=== PATIENT | male | born 1935 | race Caucasian/White ===

== ENCOUNTER 2017-09-09 09:47 | Inpatient (IN) | payer MEDICARE, OTHER, SELFPAY ==
[2017-09-09] VITALS (15 sets, daily range): BP systolic 72–126; BP diastolic 26–67; PULSE 63–90; RESP 13–33; TEMP 36.4–36.5; O2SAT 92–100; BMI 26.0; BMI 25.7; BMI 26.1
--- NOTE | 2017-09-09 10:01 | EKG12_ITS ---
Test Reason : SYNCOPE Blood Pressure : / mmHG Vent. Rate : 087 BPM Atrial Rate : 087 BPM P-R Int : 178 ms QRS Dur : 090 ms QT Int : 404 ms P-R-T Axes : 078 -46 076 degrees QTc Int : 486 ms Sinus rhythm with occasional Premature ventricular complexes Low voltage QRS Left anterior fascicular block Prolonged QT Abnormal ECG Confirmed by POPPY FORDE, LAN ([id number]), legal editor MAXWELL MEDELLIN ([id number]) on 09/11/2017 2:10:31 PM Referred By: GARY Confirmed By:LAN MCWILLIAMS MD
--- NOTE | 2017-09-09 10:08 | ED.DCSUM_ITS ---
- ER Visit Summary Date of Service: 09/09/17 Chief Complaint: Weakness History of Present Illness: The patient is a 81 M brought in by EMS. Patient reports having poor appetite and p.o. intake over the past couple weeks due to a sour stomach. Patient states he has had nausea but no vomiting or diarrhea. He has not been willing to eat or drink. He was taking a shower this morning when he fell to the floor stating he was too weak. Family was unable to help him up. Patient denies that he passed out. EMS reports the patient was unresponsive on their arrival with agonal respirations. Patient is alert after getting IV fluid boluses. He remains hypotensive. He denies pain at this time. He denies vomiting or diarrhea. He has reported mild cough. Past history significant for hypertension. He has continued to take his blood pressure medications. Physical Examination: Blood pressure 72/40, temperature 97.6, heart rate 81, respiratory rate 33, pulse ox 98% on room air. The time of my examination his respiratory rate is 20. Patient is lying in bed in no acute distress. He is alert and talkative. Head neck examination is significant for dry mucous membranes. There is no external sign of trauma. Heart is regular rate and rhythm. Lung sounds are clear. Abdomen is soft and nontender to palpation. Hypoactive bowel sounds are noted throughout. Neuro exam reveals no focal deficits. Test Results: EKG is sinus [address] change. CBC was a white count of 20.4 with hemoglobin 11.4. Chemistry studies reveal bicarb of 17, BUN 69, creatinine 2.81. There are no prior lab studies available for comparison. LFTs are significant for an AST of 71. His lactic acid returned at 19.1. His calcium is elevated at 13.9. ABG was ordered but venous stick was obtained. PH is 7.22. Emergency Department Course and Treatment: Patient has been given a total of 4 L of IV fluid. Blood pressure is currently 126/65 with a heart rate of 70. On repeat examination patient states he does feel improved. He has no abdominal tenderness on exam. I spoke with Dr. Ricardo and the patient be admitted to PCU. Treatment Plan: [] Disposition: Admit Impression: 1. Renal failure 2. Hypotension, improved 3. Lactic acidosis This note was generated with [employer]ation software. It may contain incorrect words, spelling, and punctuation that were not noted in review of the chart prior to signing ED Disposition - Plan for ED Patient: Chief Complaint: Weakness Referrals: Jesus Alberto Kaur MD [Primary Care Provider] -
[2017-09-09 10:11] LABS: Bedside Glucose 119 mg/dL (70-110)
[2017-09-09 10:28] LABS: Hemoglobin 11.4 g/dl (13.0-16.5); Mean Corp Hgb Conc 33.5 g/gl (32-36); Mean Corpuscular Hgb 31.3 pg (27.0-32.0); Mean Corpuscular Volume 93.4 fL (80-94); Mean Platelet Vol. 10.3 fl (6.2-12.0); Platelet Count 183 K/mm3 (150-450); RBC Distribution Width CV 12.6 % (11.6-14.6); RBC Distribution Width SD 42.6 fl (35.1-43.9); Red Blood Count 3.64 M/mm3 (4.6-6.2); White Blood Count 20.4 K/mm3 (4.4-11.0)
[2017-09-09] MEDS: 0.9% Normal Saline 1,000 ML 1000 ML IV ×2 (10:30)
[2017-09-09] MEDS: Ondansetron 4 MG/2 ML Vial IV (10:30)
[2017-09-09 10:35] LABS: Differential Indicated MANUAL DIFF; POSITIVE COUNT YES; POSITIVE DIFFERENTIAL NO; POSITIVE MORPHOLOGY YES
--- NOTE | 2017-09-09 10:48 | ED.RN ---
lab resulted lactic 19.1, physician noted
[2017-09-09 10:49] LABS: Lactic Acid 19.1 mmol/L (0.4-2.0)
--- NOTE | 2017-09-09 10:54 | ED.RN ---
PER SAMMI WITH JESSICA HERNANDEZ; SOMEONE WILL CALL US BACK IN REGARDS TO PT TODAY IN THE MEAN TIME DO WHAT IS BEST FOR THE PT
--- NOTE | 2017-09-09 10:58 | ED.RN ---
2l normal saline given by ems prior to arrival. total fluid bolus to pt 4l.
[2017-09-09 11:13] LABS: Lymphocyte 19 % (19-41); Metamyelocyte 5 % (0-1); Monocyte 3 % (0-10); Myelocyte 3 (0-0); Neutrophil-Segmented 70 % (47-70); Total Cells Counted 100 (MANUAL DIFF)
[2017-09-09 11:14] LABS: Platelet Estimate ADEQUATE (ADEQ); Red Cell Morphology NORM C+C NORMAL (NORM C&C)
[2017-09-09 11:15] LABS: AST(SGOT) 71 U/L (15-37); Absolute Lymphocyte Count 3.88 X10^3/ul (0.83-4.51); Absolute Neutrophil Count 14.3 X10^3/uL (2.0-7.7); Alanine Aminotransfer ALT/SGPT 27 U/L (16-61); Alkaline Phosphatase 83 U/L (45-117); Anion Gap 32 (5-15); BUN 69 mg/dL (7-18); BUN/Creat Ratio 24.6 RATIO (10-20); Bilirubin, Direct 0.13 mg/dL (0.00-0.30); Calcium,Total 13.9 mg/dL (8.5-10.1); Chloride 88 mmol/L (98-107); Creatinine, Serum 2.81 mg/dL (0.70-1.30); EST Glomerular Filtration Rate 23 mL/min (>60); Est Glom Filt Rate - Afr Amer 28 mL/min (>60); Estimated Creatinine Clearance 18.61 ml/min; Globulin 3.1 g/dL (2.2-4.2); Glucose 142 mg/dL (74-106); Potassium 3.7 mmol/L (3.5-5.1); Protein, Total 6.1 g/dL (6.4-8.2); Sodium Level 137 mmol/L (136-145)
[2017-09-09 12:15] LABS: Mucous, Urine 0 SEEN /hpf (<or=2+); Red Blood Cells-Urine 0 SEEN /hpf (0-5); Squamous Epithelial Cells - UA 0 SEEN /hpf (0-5)
[2017-09-09 12:22] LABS: Color, Urine Yellow (Yellow); Glucose, Dipstick Normal (Normal); Ketone-Dipstick 50 mg/dl (Negative); Leukocyte Esterase-Dipstick Negative /ul (Negative); Nitrite-Dipstick Negative (Negative); Occult Blood-Urine 250 /ul (Negative); Protein-Dipstick 30 mg/dl (Negative); Urine Bilirubin Dipstick Negative (Negative); Urine Clarity Clear (Clear); Urine Urobilinogen Normal (Normal)
[2017-09-09 12:35] LABS: Bacteria 1+ /hpf (None Seen); White Blood Cells 0-5 SEEN /hpf (0-5)
[2017-09-09 12:36] LABS: Hyaline Cast 0-5 SEEN /lpf (0-5)
[2017-09-09 12:37] LABS: Fine Granular Cast- Urine 0-5 SEEN /lpf (0-5)
--- NOTE | 2017-09-09 13:11 | CM.ED ---
Social Work Note Into complete initial assessment as pt is to be admitted. Pt accompanied by his daughter, Jessica, and SW introduced self and role at [facility]. The pt reports to live alone in a two-story home, with a bedroom on the second level. Reports a decrease in strength over the past 2 weeks in combination with more fatigue and poor appetite. Denies use of DME, and reports to be independent with ADL's. Confirms that his PCP is Dr. Kaur, and no specialists. Prefers [facility]. Denies having advanced directives, but is interested in documents. Provided with copies of each. No hx of SNF or HHC. RN CM to follow on assigned unit. Plan: No anticipated needs. Elaine Iniguez, CASTING HOUSE WORKER, TRAY FILLER
[2017-09-09 14:07] LABS: Reflex Lactate? Y
[2017-09-09 15:02] LABS: Lactic Acid 2.1 mmol/L (0.4-2.0)
--- NOTE | 2017-09-09 15:54 | PCM.HP.STD ---
Problem List (1) Near syncope Status: Acute (2) Hypotension Status: Acute (3) TRINIDAD (acute kidney injury) Status: Acute (4) Gastritis Status: Acute History of Present Illness Date of Admission: 09/09/17 Chief Complaint: near syncope The patient is a 81 year old M with a hx of htn who presented to the ER with chief complaint of near syncope. Patient has been feeling poorly for 2 weeks. This morning he was in the shower and his back started hurting and he lost his balance. He got down to the ground and called out to his daughter for help. She came and found him mumbling and seeming somewhat unresponsive and she called EMS who reported he was somewhat unresponsive when they arrived. They brought him to the emergency room and he was found to have hypotension with a blood pressure of 72/40 that responded to IV fluids. He also had tachypnea, AK I, significant leukocytosis with left shift, mild anemia. The patient has been feeling poor for about 2 weeks. He has had a sour stomach. On further questioning he reveals that this includes intermittent abdominal pain, nausea, acid reflux, increased burping. He has been trying to take Nexium for this which has helped in the past-it is not helped this time. He has been unable to eat or drink very much. His daughter has been encouraging him to drink and he states that he has been however she reports he is not having very much oral intake. He has also had an intermittent cough, and he notes he has had some black itch and brownish sputum production. He is not short of breath however he is on oxygen at the moment. He has no fevers or chills. He denies diarrhea or vomiting at all. He denies black or tarry stools. He also states that he normally smokes a pipe frequently during the day and drinks 4-5 beers per day. His abdominal discomfort has been worsened with these and he has not been using them as much lately. [] Past Medical History Allergies No Known Allergies Allergy (Verified 09/09/17 09:55) Home Medications: Ambulatory Orders Medication Instructions Recorded Aspirin [Aspirin, Baby] 81 mg PO DAILY@0800 09/09/17 Lisinopril [Lisinopril] 20 mg PO DAILY 09/09/17 Surgical History: appendectomy, tonsillectomy Psychiatric History: No pertinent psych hx Lives: With Family Smoking Status: Current every day smoker Tobacco Use: Pipe Alcohol: Heavy Drugs: None - *Family History Maternal History Items: Cancer Paternal History Items: Cancer - lung Review of Systems Constitutional: Denies: Chills, Fever, Weight Change HEENT: Denies: Head Aches, Sinus Congestion, Sinus Drainage Cardiovascular: Reports: Syncope. Denies: Chest Pain, Palpitations Respiratory: Reports: Cough, Hemoptysis. Denies: Shortness of Breath, Shortness of breath at rest, Shortness of breath upon exertion, Sputum production, Wheezing Gastrointestinal: Reports: Abdominal Pain, Nausea, - - gerd, pain with eating, belching. Denies: Diarrhea, Vomiting Genitourinary: Denies: Dysuria Musculoskeletal: Denies: Joint Pain, Joint Tenderness Skin: Denies: Rash, Wounds Neurological: Denies: Numbness, Tingling, Focal weakness Psychiatric: Denies: Anxiety, Depression, Homicidal Ideations, Suicidal Ideations Hematologic/ Lymphatic: Denies: Easy Bruising, Easy Bleeding VTE Information - Inpt Only VTE Present on Admission: No VTE Mechan Device Prophylaxis: SCD's VTE Pharm Prophylaxis ordered?: No Patient Problems: Active and Suspected Problems Near syncope (Acute) Hypotension (Acute) TRINIDAD (acute kidney injury) (Acute) Gastritis (Acute) - Physical Exam General: Alert, Oriented x3, Cooperative HEENT: Atraumatic, PERRLA, EOMI, Normocephalic Neck: Supple, No JVD, Negative Carotid Bruits Lungs: Clear to auscultation, Normal air movement Cardiovascular: Regular rate, No murmurs Abdomen: Bowel Sounds Present, Soft, Non Tender Extremities: No edema, Capillary Refill Less than 3 Seconds Skin: No rashes, No breakdown Musculoskeletal: No Tenderness to Palpation of Joints or Extremities Neurological: Cranial nerves II-XII grossly intact Psych/Mental Status: Normal Affect, Appropriate, Alert and oriented to time, place, person, mood and affect Vital Signs Temp Pulse Resp BP Pulse Ox 97.6 F L 70 16 113/66 95 09/09/17 14:27 09/09/17 14:27 09/09/17 14:27 09/09/17 14:27 09/09/17 15:50 Oxygen Flow Rate (L/min) 2 Oxygen Delivery Method Nasal Cannula Weight: 159 lb 6.307 oz Body Mass Index (BMI) 25.7 Laboratory Tests Past 24 Hrs 09/09/17 14:20 Lactic Acid 2.1 H Assessment/Plan All Active Problems Near syncope (Acute) Hypotension (Acute) TRINIDAD (acute kidney injury) (Acute) Gastritis (Acute) 1. Near syncopal episode 2/2 Hypotension suspect 2/2 dehydration from decreased PO intake over 2 weeks - hydrate with aggressive fluids. High LA on presentation. improving at this point. High WBCs, unclear etiology. urine neg. CXR pending as below. -ABG acidotic on presentation with low CO2 and PO2. High Anion Gap on CMP. LFTs with slightly high AST, otherwise normal. - Rule out cardiac etiology: Obtain EKG. Obtain troponin. Maintain on tele. GI sx could be 2/2 cardiac, although less likely. -Does have productive cough suspicious for hemoptysis, mild anemia, smoking hx + hx lung CA - obtain chest xray. -Get PTOT evals. -serial orthostatic vitals. 2. TRINIDAD - 2/2 above - hydrate. Hold NILESH. 3. Gastritis - he has symptoms concerning for severe gastritis, GERD, possible underlying ulcer. Check stool occult blood given mild normocytic anemia. Start BID protonix. 4.HTN - stable. hold nilesh given hypotensive presentation and TRINIDAD DVT ppx: SCDs DC planning: PTOT This patient was seen by José Rosario PA-C under the supervision of Doctor Ricardo.
--- NOTE | 2017-09-09 16:00 | RAD_ITS ---
STUDY: X-RAY CHEST REASON FOR EXAM: Male, 81 years old. Lactic acidosis. Syncope. Shortness of breath. TECHNIQUE: PA and lateral views of the chest. COMPARISON: None. FINDINGS: There is hyperinflation of the lungs consistent with chronic obstructive lung disease (COPD). Question atelectasis versus mild infiltrate in the left lower lobe. There is no demonstrated pleural abnormality. Normal size heart. Normal mediastinum and pro. Normal visualized pulmonary arteries. There is atherosclerotic calcification of the aortic arch with tortuosity. Normal visualized thoracic spine. Normal visualized ribs, clavicles, and shoulders. There is no demonstrated abnormality of the visualized soft tissue structures of the upper abdomen. RAD/Chest PA and Lateral IMPRESSION: COPD. Atelectasis versus infiltrate in the left lower lobe. Electronically Signed: Scar Padron DO at 16:25 EDT Tel [phone], Service support ,
--- NOTE | 2017-09-09 16:07 | NURSING ---
[id number] called er charge to send patient
[2017-09-09 16:31] LABS: Blood Gas Specimen Type ART; O2 Delivery Device Nasal Can; SITE R Brachial; Time Given 1112; VBG BASE EXCESS -22 mmol/L (-1.0-3.5); VBG Bicarbonate 6 mmol/L (22-26); VBG Oxygen Content 6 mmol/L (23-33); VBG PO2 27 mmHg (25-40); VBG SO2 41 % (50-70); VBG pH 7.22 (7.32-7.42)
[2017-09-09] MEDS: 0.9% Normal Saline 1,000 ML 150 ML IV ×2 (16:46→23:53)
--- NOTE | 2017-09-09 18:57 | CT_ITS ---
STUDY: CT ABDOMEN AND PELVIS WITH CONTRAST REASON FOR EXAM: Male, 81 years old. Abdominal distention and pain with weight loss. Eructation. RADIATION DOSAGE (If Supplied By Facility): CTDIvol = ( 10.39 ) mGy, DLP = ( 529.66 ) mGycm TECHNIQUE: Transaxial images were obtained from the dome of the diaphragm to the symphysis pubis without oral contrast. 450ML ml of Gastrografin contrast was administered. Sagittal and coronal images were reconstructed. Individualized dose optimization techniques were used for this CT. COMPARISON: None. FINDINGS: Bases are hyperexpanded. There is increased markings throughout the lung bases with a vague reticulonodular pattern. There is no consolidation or large mass. Small left pleural effusion. The visualized portions of the heart are within normal limits. Normal liver. Normal gallbladder and extrahepatic biliary system. Normal spleen. Normal pancreas. Normal bilateral adrenal glands. Normal right kidney. Normal right ureter. The left kidney is grossly normal. There is mild stranding of the perinephric fat. Renal fascial planes which extend downward into the left pelvis. There is no renal calculi or hydronephrosis. The left ureter appears grossly normal. The stomach is markedly distended with fluid. There is thickening of the pylorus and first part of the duodenum with mild associated stranding. There is a masslike area of density between the gallbladder underside of the liver and duodenum which extends outward as a nodular soft tissue mass into the mesentery along the underside of the distal stomach this extends beneath the diaphragm centrally to the mesentery adjacent to the second and third portion of the duodenum. There is stranding extending into the small bowel mesentery with diffuse mesenteric lymphadenopathy. The distal jejunum and small bowel appear normal. There is sigmoid diverticulosis without acute inflammatory change. The proximal colon appears normal. The appendix is visualized and appears normal. There is diffuse atherosclerotic calcification of the abdominal aorta, without a demonstrated aneurysm. Normal inferior vena cava. Areas retroperitoneal lymphadenopathy extending from the level of the diaphragm to the bifurcation. Large retrocrural lymph nodes are also noted at the level of the diaphragm Normal urinary bladder. The prostate is enlarged. No pelvic lymphadenopathy. No free air or free fluid is seen within the peritoneal cavity. Normal abdominal wall. There are diffuse degenerative changes of the visualized lumbar spine. CT/Abdomen/Pel W ORAL Cont Only IMPRESSION: 1. Inflammatory changes involving the distal stomach and proximal duodenum with marked mesenteric lymphadenopathy there is marked associated adenopathy within the small bowel mesentery and retrocrural space and upper retroperitoneum. Question malignancy or inflammatory change. The patient will benefit from endoscopy.. 2. Marked distention of the stomach secondary to distal inflammatory change. 3. Question inflammatory changes of the left kidney without stone or obstruction. 4. Sigmoid diverticulosis without acute inflammatory change. Electronically Signed: Scar Padron DO at 22:00 EDT Tel [phone], Service support ,
[2017-09-09] MEDS: Ipratropium/Albuterol Sulfate 3 ML AMPUL.NEB INHALATION (19:12)
[2017-09-09 20:21] LABS: Hematocrit 31.7 % (40-54); Hemoglobin 10.8 g/dl (13.0-16.5)
[2017-09-09 20:32] LABS: Lipase 488 U/L (73-393)
[2017-09-09 20:42] LABS: Anion Gap 10 (5-15); BUN 76 mg/dL (7-18); BUN/Creat Ratio 32.6 RATIO (10-20); Calcium,Total 11.8 mg/dL (8.5-10.1); Chloride 98 mmol/L (98-107); Creatinine, Serum 2.33 mg/dL (0.70-1.30); EST Glomerular Filtration Rate 29 mL/min (>60); Est Glom Filt Rate - Afr Amer 35 mL/min (>60); Estimated Creatinine Clearance 22.44 ml/min; Glucose 99 mg/dL (74-106); Magnesium 2.8 mg/dL (1.6-2.6); Potassium 4.1 mmol/L (3.5-5.1); Sodium Level 140 mmol/L (136-145)
[2017-09-09 20:52] LABS: Phosphorus 4.3 mg/dL (2.5-4.9); Thyroid Stim Hormone (TSH) 2.09 uIU/mL (0.358-3.74)
[2017-09-09 21:40] LABS: Reflex Lactate? Y
[2017-09-09] MEDS: Pantoprazole Sodium 40 MG Tablet PO (22:36)
[2017-09-09 23:31] LABS: Lactic Acid 1.7 mmol/L (0.4-2.0)
[2017-09-10] VITALS (56 sets, daily range): BP systolic 48–167; BP diastolic 13–131; PULSE 67–87; RESP 14–37; TEMP 36.6–39.1; O2SAT 74–100
--- NOTE | 2017-09-10 01:30 | PCM.CONS.B ---
- Consult Date of Consult: 09/10/17 - Reason for Consult Chief Complaint: weakness, abdominal distention, anorexia History of Present Illness: 81 y/o WM presents with feeling poorly for about 4 weeks, and hasn't been able to eat for the past week. Feeling very weak, fell in the shower, daughter brought patient to ED [facility]. Patient complains of sour stomach. Has nausea, had emesis x 2 several days ago. Denies blood in emesis. Denies abdominal pain, but feels bloated and uncomfortable. Had stomach pains about a year ago, took nexium for this and he states that he is still taking this. Denies history of PUD. Denies previous colonoscopy. WBC is 20.4K, Hgb is 10.8 and Hct is 31.7, initial lactic acid was 19.1 but corrected with aggressive hydration to 1.7. CT scan reveals Past Medical History: hypertension alcoholism rosacea - rhinophyma chronic renal insufficiency Past Surgical History: tonsillectomy appendectomy cataract surgery vasectomy Medications: lisinopril 20 qd atenolol 50 qd omega fish oil MVI ginseng alpha tocopheryl acetate garlic simvastatin aspirin 81mg qd Allergies: Has no known drug allergies Social history: TOB use cigar/pipe smoking for 60y ETOH use 4-5 beers per day Patient lives alone, has daughter nearby Father of lung cancer Mother of old age, had breast cancer Brother had Hodgkin's, another brother had laryngeal cancer Review of Systems: General - denies fevers, has anorexia Cardiovascular denies chest pain, denies history of heart attack Pulmonary denies shortness of breath, denies coughing up blood Gastrointestinal as per HPI, denies blood in stools Neurological denies seizures, denies history of stroke Genitourinary denies burning with urination, denies blood in urine Hematological denies spontaneous/prolonged bleeding Skin denies open nonhealing wounds Musculoskeletal has some neck pain Endocrine denies diabetes Psychological denies hallucinations Physical examination: Vital signs Temp 97.7F HR 66 RR 20 BP 114/60 General WD/WN WM in no apparent distress, alert and oriented, not septic appearing HEENT Normocephalic. EOM intact with sclera clear and no icterus noted. Neck is supple with no jugular venous distention noted. Trachea is midline. Lungs normal breath sounds in all lung motley. No rales/rhonchi/wheezing noted. No labored breathing noted, such as retractions. No cough heard. Heart normal S1 and S2 auscultated. No rubs/clicks/murmurs noted. Normal size and location by auscultation. Abdomen soft and benign but distended. Normal bowel sounds. No abdominal bruits noted. Extremities ecchymotic areas of upper extremities due to recent fall, no calf tenderness noted. No pitting edema noted. Genitourinary/Rectal deferred Skin normal skin integrity. Neurological non focal. Psychological normal affect, patient is calm and appropriate Impression: weakness anorexia abnormal CT scan anemia Discussion/Plan: I have discussed the above with the patient. I do not know if patient will tolerate colon cleansing preparation at this point, but will proceed to EGD, since CT scan findings reveal abnormalities of upper GI tract. I have explained the procedure to the patient. I have counseled the patient as to the risks of the procedure, including but not limited to: infection, bleeding, perforation of GI tract, aspiration, etc. the patient understands. He agrees to proceed. I have asked if he has any questions and I have answered them to the patients satisfaction and the patient has no further questions.
--- NOTE | 2017-09-10 01:47 | CON.PCM_ITS ---
- Consult Date of Consult: 09/10/17 - Reason for Consult Chief Complaint: weakness, abdominal distention, anorexia History of Present Illness: 81 y/o WM presents with feeling poorly for about 4 weeks, and hasn't been able to eat for the past week. Feeling very weak, fell in the shower, daughter brought patient to ED [facility]. Patient complains of sour stomach. Has nausea, had emesis x 2 several days ago. Denies blood in emesis. Denies abdominal pain, but feels bloated and uncomfortable. Had stomach pains about a year ago, took nexium for this and he states that he is still taking this. Denies history of PUD. Denies previous colonoscopy. WBC is 20.4K, Hgb is 10.8 and Hct is 31.7, initial lactic acid was 19.1 but corrected with aggressive hydration to 1.7. CT scan reveals Past Medical History: hypertension alcoholism rosacea - rhinophyma chronic renal insufficiency Past Surgical History: tonsillectomy appendectomy cataract surgery vasectomy Medications: lisinopril 20 qd atenolol 50 qd omega fish oil MVI ginseng alpha tocopheryl acetate garlic simvastatin aspirin 81mg qd Allergies: Has no known drug allergies Social history: TOB use cigar/pipe smoking for 60y ETOH use 4-5 beers per day Patient lives alone, has daughter nearby Father of lung cancer Mother of old age, had breast cancer Brother had Hodgkin's, another brother had laryngeal cancer Review of Systems: General - denies fevers, has anorexia Cardiovascular denies chest pain, denies history of heart attack Pulmonary denies shortness of breath, denies coughing up blood Gastrointestinal as per HPI, denies blood in stools Neurological denies seizures, denies history of stroke Genitourinary denies burning with urination, denies blood in urine Hematological denies spontaneous/prolonged bleeding Skin denies open nonhealing wounds Musculoskeletal has some neck pain Endocrine denies diabetes Psychological denies hallucinations Physical examination: Vital signs Temp 97.7F HR 66 RR 20 BP 114/60 General WD/WN WM in no apparent distress, alert and oriented, not septic appearing HEENT Normocephalic. EOM intact with sclera clear and no icterus noted. Neck is supple with no jugular venous distention noted. Trachea is midline. Lungs normal breath sounds in all lung motley. No rales/rhonchi/wheezing noted. No labored breathing noted, such as retractions. No cough heard. Heart normal S1 and S2 auscultated. No rubs/clicks/murmurs noted. Normal size and location by auscultation. Abdomen soft and benign but distended. Normal bowel sounds. No abdominal bruits noted. Extremities ecchymotic areas of upper extremities due to recent fall, no calf tenderness noted. No pitting edema noted. Genitourinary/Rectal deferred Skin normal skin integrity. Neurological non focal. Psychological normal affect, patient is calm and appropriate Impression: weakness anorexia abnormal CT scan anemia Discussion/Plan: I have discussed the above with the patient. I do not know if patient will tolerate colon cleansing preparation at this point , but will proceed to EGD, since CT scan findings reveal abnormalities of upper GI tract. I have explained the procedure to the patient. I have counseled the patient as to the risks of the procedure, including but not limited to: infection, bleeding, perforation of GI tract, aspiration, etc. the patient understands. He agrees to proceed. I have asked if he has any questions and I have answered them to the patient?s satisfaction and the patient has no further questions.
[2017-09-10] MEDS: 0.9% Normal Saline 1,000 ML 150 ML IV (06:33)
[2017-09-10 08:13] LABS: Hematocrit 28.1 % (40-54); Hemoglobin 9.5 g/dl (13.0-16.5); Mean Corp Hgb Conc 33.8 g/gl (32-36); Mean Corpuscular Hgb 31.5 pg (27.0-32.0); Mean Platelet Vol. 9.8 fl (6.2-12.0); Platelet Count 147 K/mm3 (150-450); RBC Distribution Width CV 12.9 % (11.6-14.6); RBC Distribution Width SD 43.8 fl (35.1-43.9); Red Blood Count 3.02 M/mm3 (4.6-6.2); White Blood Count 13.2 K/mm3 (4.4-11.0)
[2017-09-10 08:17] LABS: Differential Indicated MANUAL DIFF; POSITIVE COUNT YES; POSITIVE DIFFERENTIAL NO; POSITIVE MORPHOLOGY YES
[2017-09-10 08:32] LABS: Anion Gap 10 (5-15); BUN 78 mg/dL (7-18); BUN/Creat Ratio 32.8 RATIO (10-20); Calcium,Total 10.5 mg/dL (8.5-10.1); Chloride 101 mmol/L (98-107); Creatinine, Serum 2.38 mg/dL (0.70-1.30); EST Glomerular Filtration Rate 28 mL/min (>60); Est Glom Filt Rate - Afr Amer 34 mL/min (>60); Estimated Creatinine Clearance 21.97 ml/min; Glucose 89 mg/dL (74-106); Potassium 4.1 mmol/L (3.5-5.1); Sodium Level 138 mmol/L (136-145)
[2017-09-10 08:46] LABS: Eosinophil 1 % (0-5); Lymphocyte 14 % (19-41); Metamyelocyte 3 % (0-1); Myelocyte 2 (0-0); Neutrophil-Band 8 % (0-5); Neutrophil-Segmented 72 % (47-70); Platelet Estimate ADEQUATE (ADEQ); Red Cell Morphology NORM C+C NORMAL (NORM C&C); Total Cells Counted 100 (MANUAL DIFF)
--- NOTE | 2017-09-10 08:47 | EKG12_ITS ---
Test Reason : Blood Pressure : / mmHG Vent. Rate : 068 BPM Atrial Rate : 068 BPM P-R Int : 176 ms QRS Dur : 074 ms QT Int : 382 ms P-R-T Axes : 070 -33 028 degrees QTc Int : 406 ms Normal sinus rhythm Left axis deviation Low voltage QRS Inferior infarct , age undetermined Confirmed by POPPY FORDE, LAN ([id number]), editor managing newspaper MAXWELL MEDELLIN ([id number]) on 09/13/2017 1:57:28 PM Referred By: EAGLE Confirmed By:LAN MCWILLIAMS MD
[2017-09-10] MEDS: Aspirin 81 MG TAB.CHEW PO (09:14)
--- NOTE | 2017-09-10 09:15 | NURSING ---
Patient refusing to let me take vital signs or restart IV.
[2017-09-10] MEDS: Haloperidol Lactate 5 MG/ML Vial 1 MG IM (09:57)
[2017-09-10 10:08] LABS: Absolute Neutrophil Count 10.6 X10^3/uL (2.0-7.7); Neutrophil # 10.56 X10^3/uL (2.7-7.7)
[2017-09-10] MEDS: Ipratropium/Albuterol Sulfate 3 ML AMPUL.NEB INHALATION (11:15)
[2017-09-10] MEDS: LORazepam 2 MG/ML Syringe IV (11:33)
[2017-09-10 12:15] LABS: Base Excess 2 mmol/L (-2 to +2); Bicarbonate 26.3 mmol/L (22-26); Blood Gas Specimen Type ART; O2 Delivery Device NRB Mask; PO2 135 mmHG (75-100); SITE R Radial; SO2 99 % (95-99); Time Given 1210; Total Carbon Dioxide 27 mmol/L; pCO2 37.4 mmHg (35-45); pH 7.46 (7.35-7.45)
--- NOTE | 2017-09-10 12:32 | CON.PCM_ITS ---
Reason for Consult Date of Consultation: 09/10/17 Reason for Consultation: Acute respiratory failure History of Present Illness: The patient is an 81-year-old male, with a history as outlined below, who initially presented to the emergency department on September 09 with abdominal pain, poor p.o. intake, loss of appetite, unintentional weight loss and syncopal event while showering. The patient had reportedly been in a state of relative health until recently when he began to experience generalized weakness. The patient does have a history of alcohol dependence, drinking 5 beers daily. Upon EMS arrival, the patient was noted to be unresponsive, cyanotic and hypotensive. On arrival to the emergency department, the patient was noted to be hypotensive and tachypneic, but was maintaining oxygen saturations on room air. Laboratory evaluation revealed elevated white blood cell count to 20,000. Chemistry profile revealed a serum bicarbonate level of 17 with an elevated anion gap and acute kidney injury, with a creatinine of 2.81. Serum lactate was elevated to 19. AST was increased to 71. The patient stabilized clinically following IV fluid resuscitation. A CT abdomen/pelvis was obtained which revealed inflammatory changes in the distal stomach and proximal duodenum with market mesenteric lymphadenopathy concerning for potential malignancy or inflammatory reaction. There is marked distention of the stomach secondary to distal inflammatory changes. While in the emergency department, the patient received a total of 4 L of IV fluids. The patient was then admitted to the progressive care unit with fluid responsive hypotension, acute kidney injury and anemia. General surgery was consulted and saw the patient on September 10. Their plan included upper endoscopy, given the aforementioned CT abdomen findings. On the afternoon of September 10, a rapid response was called after the patient was noted to be less responsive and hypotensive. He had just received 2 mg of IV Ativan in response to elevated CIWA scores and concern for alcohol withdrawal. The patient was notably somnolent, but would arouse to painful stimulation. Supplemental IV fluids were administered. The patient was then transferred to the medical intensive care unit. Upon arrival to the ICU, the patient was increasingly lethargic with sonorous respirations. Therefore, the decision was made to intubate the patient for airway protection. Following successful placement of an endotracheal tube, and orogastric tube was introduced into the patient's stomach. Following insertion , a profuse amount of dark colored gastric content, nearly resembling coffee- ground, was suctioned. Over 3 L of fluid was removed. Gastric content was collected and was to be sent for occult blood. The patient did receive phenylephrine IV push following intubation to help stabilize hemodynamics. Dr. Garcia of general surgery was contacted and made aware of the patient's clinical state. Despite attempts to ongoing volume optimization, the patient remained hypotensive, requiring emergent central line placement and subsequent initiation of Levophed to maintain hemodynamic stability. Bedside Intubation Note: The patient was placed in appropriate sniffing position. He was preoxygenated with 100% O2. 20 mg of etomidate was administered, after which time, direct laryngoscopy was performed with grade 1 view noted. A #8 endotracheal tube was subsequently placed without issue. Breath sounds were equal bilaterally. Plain film chest x-ray revealed an appropriately positioned endotracheal tube. Past Medical History Allergies No Known Allergies Allergy (Verified 09/09/17 09:55) Home Medications: Ambulatory Orders Medication Instructions Recorded Aspirin [Aspirin, Baby] 81 mg PO DAILY@0800 09/09/17 Lisinopril [Lisinopril] 20 mg PO DAILY 09/09/17 Surgical History: appendectomy, tonsillectomy Psychiatric History: No pertinent psych hx Lives: With Family Smoking Status: Current every day smoker Tobacco Use: Pipe Alcohol: Heavy Drugs: None - *Family History Maternal History Items: Cancer Paternal History Items: Cancer - lung Review of Systems Unable to obtain accurate/complete ROS d/t: Due to current intubation and mechanical ventilation status. Patient Problems: Active and Suspected Problems Near syncope (Acute) Hypotension (Acute) TRINIDAD (acute kidney injury) (Acute) Gastritis (Acute) GI bleed (Acute) Objective: The patient's most recent lab work, culture data and imaging studies have all been personally reviewed. - Physical Exam General: - - Intubated, sedated and mechanically ventilated. HEENT: Atraumatic, PERRLA, Normocephalic Oral: Dry Mucosa, - - Endotracheal and OG tubes in place Neck: Supple, No Nodes, Trachea Midline, - - Right IJ central venous catheter in place Lungs: No wheeze, No rales, Diminished, Rhonchi, Tachypneic Cardiovascular: Normal S1, Normal S2, No murmurs, Tachycardic Abdomen: Soft, Hypoactive Bowel Sounds, Distended Extremities: Clubbing, Cyanosis, Diminished Peripheral Pulses Skin: No breakdown Musculoskeletal: No Tenderness to Palpation of Joints or Extremities Lymphatic: No Cervical, Supraclavicular, or Inguinal Adenopathy Neurological: - - Currently sedated with a RASS of -2 Vital Signs Temp Pulse Resp BP Pulse Ox 97.8 F 69 16 112/81 H 94 09/10/17 09:35 09/10/17 09:35 09/10/17 09:35 09/10/17 09:35 09/10/17 09:35 Oxygen Flow Rate (L/min) 2 Oxygen Delivery Method Nasal Cannula Weight: 159 lb 6.307 oz Body Mass Index (BMI) 25.7 Orthostatic Vital Signs Start: 09/10/17 06:18 Freq: q24h Status: Active Protocol: Activity Type Activity Date Activity User E-Sign Co-Sign Detail Recorded Client Recorded Date Recorded By Document 09/10/17 06:[place] [facility] [facility] [id number]/10[place]17 06[place] [facility] [place] [place]10[place] 06:18 Orthostatic Vitals Standing -Blood Pressure (90/60-120/80 mm Hg) 75/40 L -Extremity Use Left Arm -Pulse Rate (60-100 beats/min) 76 Sitting -Blood Pressure (90/60-120/80 mm Hg) 75/43 L -Extremity Use Left Arm -Pulse Rate (60-100 beats/min) 72 Lying -Blood Pressure (90/60-120/80 mm Hg) 76/44 L -Extremity Use Left Arm -Pulse Rate (60-100 beats/min) 71 Intake and Output for Last 24 Hours 09/08/17 09/09/17 09/10/17 23:59 23:59 23:59 Intake Total 1594 / 1594 957 / 957 Output Total 300 / 300 350 / 350 Balance 1294 / 1294 607 / 607 Laboratory Tests Past 24 Hrs 09/09/17 09/09/17 09/09/17 14:20 17:28 17:28 WBC RBC Hgb Hct MCV MCH MCHC RDW RDW Differential Plt Count MPV Neut % (Auto) Absolute Neuts (auto) Absolute Lymphs (auto) Total Counted Neutrophils % (Manual) Band Neutrophils % Lymphocytes % (Manual) Eosinophils % (Manual) Metamyelocytes % Myelocytes % Diff Path Review Platelet Estimate RBC Morphology Specimen Type Sample Site pH Bicarbonate Actual POC Total CO2 Base Excess O2 Saturation ABG pCO2 ABG pO2 O2 Delivery Device Liter Flow Blood Gas Notified Whom Blood Gas Notified Time Sodium Potassium Chloride Carbon Dioxide Anion Gap BUN Creatinine Estim Creat Clear Calc Est GFR (MDRD) Af Amer Est GFR (MDRD) Non-Af BUN/Creatinine Ratio Glucose Lactic Acid 2.1 H 6.0 H* Calcium Phosphorus Magnesium Troponin I 0.135 H Lipase TSH Blood Type Antibody Screen Crossmatch 09/09/17 09/09/17 09/09/17 20:04 20:04 20:04 WBC RBC Hgb 10.8 L Hct 31.7 L MCV MCH MCHC RDW RDW Differential Plt Count MPV Neut % (Auto) Absolute Neuts (auto) Absolute Lymphs (auto) Total Counted Neutrophils % (Manual) Band Neutrophils % Lymphocytes % (Manual) Eosinophils % (Manual) Metamyelocytes % Myelocytes % Diff Path Review Platelet Estimate RBC Morphology Specimen Type Sample Site pH Bicarbonate Actual POC Total CO2 Base Excess O2 Saturation ABG pCO2 ABG pO2 O2 Delivery Device Liter Flow Blood Gas Notified Whom Blood Gas Notified Time Sodium 140 Potassium 4.1 Chloride 98 Carbon Dioxide 32.0 Anion Gap 10 BUN 76 H Creatinine 2.33 H Estim Creat Clear Calc 22.44 Est GFR (MDRD) Af Amer 35 L Est GFR (MDRD) Non-Af 29 L BUN/Creatinine Ratio 32.6 H Glucose 99 Lactic Acid Calcium 11.8 H Phosphorus 4.3 Magnesium 2.8 H Troponin I Lipase TSH 2.09 Blood Type Antibody Screen Crossmatch 09/09/17 09/09/17 09/09/17 20:04 20:04 20:04 WBC RBC Hgb Hct MCV MCH MCHC RDW RDW Differential Plt Count MPV Neut % (Auto) Absolute Neuts (auto) Absolute Lymphs (auto) Total Counted Neutrophils % (Manual) Band Neutrophils % Lymphocytes % (Manual) Eosinophils % (Manual) Metamyelocytes % Myelocytes % Diff Path Review Platelet Estimate RBC Morphology Specimen Type Sample Site pH Bicarbonate Actual POC Total CO2 Base Excess O2 Saturation ABG pCO2 ABG pO2 O2 Delivery Device Liter Flow Blood Gas Notified Whom Blood Gas Notified Time Sodium Potassium Chloride Carbon Dioxide Anion Gap BUN Creatinine Estim Creat Clear Calc Est GFR (MDRD) Af Amer Est GFR (MDRD) Non-Af BUN/Creatinine Ratio Glucose Lactic Acid Calcium Phosphorus Magnesium Troponin I 0.161 H Lipase 488 H TSH Blood Type O POSITIVE Antibody Screen NEGATIVE Crossmatch See Detail 09/09/17 09/09/1709/10/18 22:54 22:54 07:00 WBC 13.2 H RBC 3.02 L Hgb 9.5 L Hct 28.1 L MCV 93.0 MCH 31.5 MCHC 33.8 RDW 12.9 RDW Differential 43.8 Plt Count 147 L MPV 9.8 Neut % (Auto) Not Reportable Absolute Neuts (auto) 10.6 H Absolute Lymphs (auto) 1.80 Total Counted 100 Neutrophils % (Manual) 72 H Band Neutrophils % 8 H Lymphocytes % (Manual) 14 L Eosinophils % (Manual) 1 Metamyelocytes % 3 H Myelocytes % 2 H Diff Path Review May foll Platelet Estimate ADEQUATE RBC Morphology NORM C+C Specimen Type Sample Site pH Bicarbonate Actual POC Total CO2 Base Excess O2 Saturation ABG pCO2 ABG pO2 O2 Delivery Device Liter Flow Blood Gas Notified Whom Blood Gas Notified Time Sodium Potassium Chloride Carbon Dioxide Anion Gap BUN Creatinine Estim Creat Clear Calc Est GFR (MDRD) Af Amer Est GFR (MDRD) Non-Af BUN/Creatinine Ratio Glucose Lactic Acid 1.7 Calcium Phosphorus Magnesium Troponin I 0.130 H Lipase TSH Blood Type Antibody Screen Crossmatch 09/10/17 09/10/17 07:00 12:12 WBC RBC Hgb Hct MCV MCH MCHC RDW RDW Differential Plt Count MPV Neut % (Auto) Absolute Neuts (auto) Absolute Lymphs (auto) Total Counted Neutrophils % (Manual) Band Neutrophils % Lymphocytes % (Manual) Eosinophils % (Manual) Metamyelocytes % Myelocytes % Diff Path Review Platelet Estimate RBC Morphology Specimen Type ART Sample Site R Radial pH 7.46 H Bicarbonate Actual 26.3 H POC Total CO2 27 Base Excess 2 O2 Saturation 99 ABG pCO2 37.4 ABG pO2 135 H O2 Delivery Device NRB Mask Liter Flow 15.0 Blood Gas Notified Whom ICU MD Blood Gas Notified Time 1210 Sodium 138 Potassium 4.1 Chloride 101 Carbon Dioxide 27.0 Anion Gap 10 BUN 78 H Creatinine 2.38 H Estim Creat Clear Calc 21.97 Est GFR (MDRD) Af Amer 34 L Est GFR (MDRD) Non-Af 28 L BUN/Creatinine Ratio 32.8 H Glucose 89 Lactic Acid Calcium 10.5 H Phosphorus Magnesium Troponin I Lipase TSH Blood Type Antibody Screen Crossmatch Clinical Impression(s) from Imaging Studies Chest X-Ray 09/09/17 16:00 IMPRESSION: COPD. Atelectasis versus infiltrate in the left lower lobe. Electronically Signed: Scar NereidaDO at 16:25 EDT Tel [phone], Service support , Abdomen CT 09/09/17 18:57 IMPRESSION: 1. Inflammatory changes involving the distal stomach and proximal duodenum with marked mesenteric lymphadenopathy there is marked associated adenopathy within the small bowel mesentery and retrocrural space and upper retroperitoneum. Question malignancy or inflammatory change. The patient will benefit from endoscopy.. 2. Marked distention of the stomach secondary to distal inflammatory change. 3. Question inflammatory changes of the left kidney without stone or obstruction. 4. Sigmoid diverticulosis without acute inflammatory change. Electronically Signed: Scar MatosonDO at 22:00 EDT Tel [phone], Service support , Assessment/Plan Active and Suspected Problems Near syncope (Acute) Hypotension (Acute) TRINIDAD (acute kidney injury) (Acute) Gastritis (Acute) GI bleed (Acute) RECOMMENDATIONS: 1. Start empiric antimicrobial coverage. 2. Continue supplemental IV fluid hydration and initiate Levophed to maintain a mean arterial pressure at or above 65 mmHg. 3. Obtain repeat arterial blood gas 1 hour after initiation of mechanical ventilation. 4. Transition p.o. PPI to IV form. 5. Discontinue Haldol and Ativan. 6. Utilize propofol and fentanyl for sedation. 7. Obtain repeat CBC, BMP, coags and lactate. 8. Send blood, urine and sputum cultures. 9. Send gastric fluid for occult blood 10. Recheck troponin level IMPRESSIONS: 1. Distributive versus hypovolemic shock Clinical state is concerning for evolving infectious etiology versus hemorrhagic shock, with concern for acute intra-abdominal process. Attempts at volume resuscitation have been unsuccessful. Therefore, following central line placement, the patient was started on vasopressors to maintain a MAP of > 65 mmHg. Will continue LR supplemental IVF's in the interim. Plan to start broad spectrum antibiotics and obtain cultures. Plans for upcoming upper endoscopy to address possible GI source of blood loss. The patient will also be transitioned to a continuous PPI drip. 2. Acute hypoxemic respiratory failure The patient was intubated upon arrival to the ICU for airway protection in the setting of sonorous respirations. Given concern for possible aspiration event antibiotics will be started as noted above. Plan to obtain sputum culture. Repeat arterial blood gas and continue scheduled bronchodilators. 3. Acute kidney injury Likely 2/2 ischemic ATN in the setting of #1 and profound intravascular volume depletion noted on admission to the hospital. Continue supportive measures with supplemental fluids and vasopressor support to maintain hemodynamic stability. Continue to monitor urine output closely. No current indication for renal replacement therapy. 4. Troponin elevation Likely 2/2 demand ischemia in the setting of #1. Will plan to recheck troponin level with repeat labs. 5. Normocytic anemia The patient was previously typed and crossed for 2 units of packed red blood cells. Pending the results of the patient's repeat CBC, transfusion may be indicated. Plans for EGD to identify possible GI blood loss. 6. Encephalopathy Likely multifactorial in etiology with metabolic derangements and polypharmacy contributing. Will continue to provide current supportive measures and minimize sedation as tolerated. 7. Hypertension/tobacco and alcohol dependence Complicates care, management, recovery and prognosis. Holding antihypertensives 2/2 #1. TIME: 130 minutes of critical care time, independent of procedures, was spent addressing the patient's distributive/hypovolemic shock, acute respiratory failure, acute kidney injury, troponin elevation, normocytic anemia, alcohol dependence, encephalopathy, review of all data and collaboration with the care team. ([id number]) Code Visit Procedures: 12345 Critial Care Addl 30 Min 9xxxx: [id number] Critical care first hour
[2017-09-10] MEDS: Phenylephrine 10 MG/ML Vial 3 MG IV ×2 (12:34→15:33)
--- NOTE | 2017-09-10 12:40 | RAD_ITS ---
STUDY: X-RAY CHEST REASON FOR EXAM: Male, 81 years old. Endotracheal tube placement. Orogastric tube placement. TECHNIQUE: Single AP portable view of the chest. COMPARISON: Comparison is made with prior examination dated September 09, 2017. FINDINGS: An endotracheal tube is in situ. The tip is at 2.7 cm proximal to the ovidio. An orogastric tube is seen with the tip in the stomach. EKG electrodes are seen. Mild degree of increased markings at the bases suggest bibasilar atelectasis superimposed on the scarring. There is no demonstrated pleural abnormality. Normal size heart. Normal mediastinum and pro. Normal visualized pulmonary arteries. There is atherosclerotic calcification of the aortic arch with tortuosity. Normal visualized thoracic spine. Normal visualized ribs, clavicles, and shoulders. There is no demonstrated abnormality of the visualized soft tissue structures of the upper abdomen. RAD/Chest 1 View (Portable) IMPRESSION: Mild degree of increased markings at the lung bases worse on the left side suggestive of bilateral atelectasis superimposed on scarring. The tip of the endotracheal tube is at 2.7 cm proximal to the ovidio. Electronically Signed: Paramjit Handley MD at 14:07 EDT Tel [phone], Service support ,
--- NOTE | 2017-09-10 13:57 | NURSING ---
Pt transferred to ICU at 1200. Failed attempt to insert peripheral IV prior to intubation. Dr. Connolly stated he will order for a central line to be inserted by Stefani Vizcaino.
--- NOTE | 2017-09-10 14:03 | PCM.OP.BLANK ---
Operative Report Date of Procedure: 09/10/17 - Triple-lumen catheter insertion Central line placement procedure note Indication: IV access/hemodynamic instability/vasoactive medications Procedure: A time-out was completed to verify correct patient, indication, medication allergies, procedure, coagulation studies, informed consent signed, and equipment needed. The patient was placed in the supine position for a central line placement to the rt IJ vein. The patients rt neck was prepped using chlorhexidine and a full body sterile drape was applied. 1% lidocaine was used to anesthetize the surrounding skin. A 7fr 16 cm blue guard triple lumen catheter introduced into the internal jugular vein using the modified Seldinger technique with the assistance of ultrasound. The catheter was threaded smoothly over the guidewire, the guidewire was removed easily, nonpulsatile blood returned. All ports were aspirated of air and flushed with sterile saline. The catheter was sutured in place and covered with an occlusive dressing impregnated with chlorhexidine. Post-procedure: The patient tolerated the procedure well. Vital signs remained stable. EBL 3cc. No complications. Chest X Ray ordered to confirm tip placement and the absence of pneumothorax. Code Visit Procedures: 36806 Insert Non-tunnel CV Cath
--- NOTE | 2017-09-10 14:09 | NURSING ---
@ 1300: 3 failed attempts to obtain blood for labs. 2L immediate Coffee ground output from NG after low suction applied. Dr. Connolly informed.
--- NOTE | 2017-09-10 14:15 | RAD_ITS ---
STUDY: X-RAY CHEST REASON FOR EXAM: Male, 81 years old. Central line placement. TECHNIQUE: Single AP portable view of the chest. COMPARISON: Comparison is made with prior examination done earlier today at 1:00 PM. FINDINGS: A right-sided internal jugular venous catheter as been placed. The tip is in the proximal portion of the superior vena cava. There is better aeration of the lungs at this time. RAD/Chest 1 View (Portable) IMPRESSION: The tip of the right internal jugular venous catheter is in the proximal portion of the superior vena cava. Improved aeration of both lungs. Electronically Signed: Paramjit Handley MD at 14:57 EDT Tel [phone], Service support ,
[2017-09-10] MEDS: Etomidate 20 MG/10 ML Vial IV (14:21)
--- NOTE | 2017-09-10 14:33 | NURSING ---
@ 1300 unable to obtain an adequate oxygen saturation wave form on all fingers and both ears. Warm towels applied to arms but no change in quality of oxygen saturation wave forms. Dr. Connolly informed. @ 1415 ABG's obtained. FIO2 weaned to 50% per orders from Dr. Connolly.
[2017-09-10 14:36] LABS: Base Excess 2 mmol/L (-2 to +2); Bicarbonate 26.2 mmol/L (22-26); Blood Gas Specimen Type ART; FI02 100; Mode A-C; O2 Delivery Device Vent; PEEP 5; PO2 294 mmHG (75-100); RR 14; SITE R Radial; SO2 100 % (95-99); Time Given 1427; Total Carbon Dioxide 27 mmol/L; Vt 500; pCO2 39.2 mmHg (35-45); pH 7.43 (7.35-7.45)
--- NOTE | 2017-09-10 14:53 | CPS ---
Unable to obtain spO2 on patient upon arrival to ICU. Dr Connolly aware. Repeat ABG shows adequate oxygenation.
[2017-09-10 15:01] LABS: M R Staph aureus DNA By PCR Negative (Negative); Probe Check PASS; Specimen Processing Control PASS
--- NOTE | 2017-09-10 15:05 | PCM.CONS.GEN ---
Reason for Consult Date of Consultation: 09/10/17 History of Present Illness: The patient is a 81 M brought in by EMS. Patient reports having poor appetite and p.o. intake over the past couple weeks due to a sour stomach. Patient states he has had nausea but no vomiting or diarrhea. He has not been willing to eat or drink. He was taking a shower this morning when he fell to the floor stating he was too weak. Family was unable to help him up. Patient denies that he passed out. EMS reports the patient was unresponsive on their arrival with agonal respirations. Patient is alert after getting IV fluid boluses. He remains hypotensive. He denies pain at this time. He denies vomiting or diarrhea. He has reported mild cough. Past history significant for hypertension. He has continued to take his blood pressure medications. Patient was seen by Dr. Garcia at approximately 130 this afternoon. She was going to get him scheduled to undergo an esophagogastroduodenoscopy. Patient was undergoing treatment to help reduce alcohol withdrawal. He developed agonal breathing needed to be intubated. OG tube was placed in over 3 L of coffee-ground fluid was removed. He is on a ventilator being hydrated and currently is on pressors. Patient did have a CAT scan of his abdomen and pelvis which showed a mass which appeared to be arising from the prepyloric region and fungating out towards the liver. It is suspicious for malignancy. Dr. Garcia is currently at another hospital and I was called to perform an emergency esophagogastroduodenoscopy on the patient. Past Medical History Allergies No Known Allergies Allergy (Verified 09/09/17 09:55) Home Medications: Ambulatory Orders Medication Instructions Recorded Aspirin [Aspirin, Baby] 81 mg PO DAILY@0800 09/09/17 Lisinopril [Lisinopril] 20 mg PO DAILY 09/09/17 Surgical History: appendectomy, tonsillectomy Psychiatric History: No pertinent psych hx Lives: With Family Smoking Status: Current every day smoker Tobacco Use: Pipe Alcohol: Heavy Drugs: None - *Family History Maternal History Items: Cancer Paternal History Items: Cancer - lung Review of Systems Unable to obtain accurate/complete ROS d/t: Patient is intubated and I am unable to obtain a review of systems. Patient Problems: Active and Suspected Problems Near syncope (Acute) Hypotension (Acute) TRINIDAD (acute kidney injury) (Acute) Gastritis (Acute) - Physical Exam Lungs: Tachypneic Abdomen: Distended - No active bowel sounds Vital Signs Temp Pulse Resp BP Pulse Ox 100.7 F H 82 36 H 102/83 H 100 09/10/17 14:15 09/10/17 14:42 09/10/17 14:42 09/10/17 14:15 09/10/17 14:15 Oxygen Flow Rate (L/min) 15 Oxygen Delivery Method Mechanical Ventilator Weight: 162 lb 0.636 oz Body Mass Index (BMI) 25.7 Intake and Output for Last 24 Hours 09/08/17 09/09/17 09/10/17 23:59 23:59 23:59 Intake Total 1594 / 1594 957 / 957 Output Total 300 / 300 2880 / 2880 Balance 1294 / 1294 -1923 / -1923 Microbiology Past 72 Hours 09/10/17 13:15 Gastric Occult Blood - Final Gastric Fluid/Contents Occult Blood Positive Laboratory Tests Past 24 Hrs 09/09/17 09/09/17 09/09/17 17:28 17:28 20:04 WBC RBC Hgb 10.8 L Hct 31.7 L MCV MCH MCHC RDW RDW Differential Plt Count MPV Neut % (Auto) Absolute Neuts (auto) Absolute Lymphs (auto) Total Counted Neutrophils % (Manual) Band Neutrophils % Lymphocytes % (Manual) Eosinophils % (Manual) Metamyelocytes % Myelocytes % Diff Path Review Platelet Estimate RBC Morphology PT INR Specimen Type Sample Site pH Bicarbonate Actual POC Total CO2 Base Excess O2 Saturation O2 % ABG pCO2 ABG pO2 Respiration Rate O2 Delivery Device Liter Flow Vent Mode Tidal Volume POC PEEP Blood Gas Notified Whom Blood Gas Notified Time Sodium Potassium Chloride Carbon Dioxide Anion Gap BUN Creatinine Estim Creat Clear Calc Est GFR (MDRD) Af Amer Est GFR (MDRD) Non-Af BUN/Creatinine Ratio Glucose Lactic Acid 6.0 H* Calcium Phosphorus Magnesium Troponin I 0.135 H B-Natriuretic Peptide Lipase TSH PTH Intact MRSA (PCR) Blood Type Antibody Screen Crossmatch 09/09/17 09/09/17 09/09/17 20:04 20:04 20:04 WBC RBC Hgb Hct MCV MCH MCHC RDW RDW Differential Plt Count MPV Neut % (Auto) Absolute Neuts (auto) Absolute Lymphs (auto) Total Counted Neutrophils % (Manual) Band Neutrophils % Lymphocytes % (Manual) Eosinophils % (Manual) Metamyelocytes % Myelocytes % Diff Path Review Platelet Estimate RBC Morphology PT INR Specimen Type Sample Site pH Bicarbonate Actual POC Total CO2 Base Excess O2 Saturation O2 % ABG pCO2 ABG pO2 Respiration Rate O2 Delivery Device Liter Flow Vent Mode Tidal Volume POC PEEP Blood Gas Notified Whom Blood Gas Notified Time Sodium 140 Potassium 4.1 Chloride 98 Carbon Dioxide 32.0 Anion Gap 10 BUN 76 H Creatinine 2.33 H Estim Creat Clear Calc 22.44 Est GFR (MDRD) Af Amer 35 L Est GFR (MDRD) Non-Af 29 L BUN/Creatinine Ratio 32.6 H Glucose 99 Lactic Acid Calcium 11.8 H Phosphorus 4.3 Magnesium 2.8 H Troponin I B-Natriuretic Peptide Lipase TSH 2.09 PTH Intact MRSA (PCR) Blood Type O POSITIVE Antibody Screen NEGATIVE Crossmatch See Detail 09/09/17 09/09/17 09/09/17 20:04 20:04 22:54 WBC RBC Hgb Hct MCV MCH MCHC RDW RDW Differential Plt Count MPV Neut % (Auto) Absolute Neuts (auto) Absolute Lymphs (auto) Total Counted Neutrophils % (Manual) Band Neutrophils % Lymphocytes % (Manual) Eosinophils % (Manual) Metamyelocytes % Myelocytes % Diff Path Review Platelet Estimate RBC Morphology PT INR Specimen Type Sample Site pH Bicarbonate Actual POC Total CO2 Base Excess O2 Saturation O2 % ABG pCO2 ABG pO2 Respiration Rate O2 Delivery Device Liter Flow Vent Mode Tidal Volume POC PEEP Blood Gas Notified Whom Blood Gas Notified Time Sodium Potassium Chloride Carbon Dioxide Anion Gap BUN Creatinine Estim Creat Clear Calc Est GFR (MDRD) Af Amer Est GFR (MDRD) Non-Af BUN/Creatinine Ratio Glucose Lactic Acid Calcium Phosphorus Magnesium Troponin I 0.161 H 0.130 H B-Natriuretic Peptide Lipase 488 H TSH PTH Intact MRSA (PCR) Blood Type Antibody Screen Crossmatch 09/09/17 09/10/17 09/10/17 22:54 07:00 07:00 WBC 13.2 H RBC 3.02 L Hgb 9.5 L Hct 28.1 L MCV 93.0 MCH 31.5 MCHC 33.8 RDW 12.9 RDW Differential 43.8 Plt Count 147 L MPV 9.8 Neut % (Auto) Not Reportable Absolute Neuts (auto) 10.6 H Absolute Lymphs (auto) 1.80 Total Counted 100 Neutrophils % (Manual) 72 H Band Neutrophils % 8 H Lymphocytes % (Manual) 14 L Eosinophils % (Manual) 1 Metamyelocytes % 3 H Myelocytes % 2 H Diff Path Review May foll Platelet Estimate ADEQUATE RBC Morphology NORM C+C PT INR Specimen Type Sample Site pH Bicarbonate Actual POC Total CO2 Base Excess O2 Saturation O2 % ABG pCO2 ABG pO2 Respiration Rate O2 Delivery Device Liter Flow Vent Mode Tidal Volume POC PEEP Blood Gas Notified Whom Blood Gas Notified Time Sodium 138 Potassium 4.1 Chloride 101 Carbon Dioxide 27.0 Anion Gap 10 BUN 78 H Creatinine 2.38 H Estim Creat Clear Calc 21.97 Est GFR (MDRD) Af Amer 34 L Est GFR (MDRD) Non-Af 28 L BUN/Creatinine Ratio 32.8 H Glucose 89 Lactic Acid 1.7 Calcium 10.5 H Phosphorus Magnesium Troponin I B-Natriuretic Peptide Lipase TSH PTH Intact MRSA (PCR) Blood Type Antibody Screen Crossmatch 09/10/17 09/10/17 09/10/17 12:12 12:45 14:28 WBC RBC Hgb Hct MCV MCH MCHC RDW RDW Differential Plt Count MPV Neut % (Auto) Absolute Neuts (auto) Absolute Lymphs (auto) Total Counted Neutrophils % (Manual) Band Neutrophils % Lymphocytes % (Manual) Eosinophils % (Manual) Metamyelocytes % Myelocytes % Diff Path Review Platelet Estimate RBC Morphology PT INR Specimen Type ART ART Sample Site R Radial R Radial pH 7.46 H 7.43 Bicarbonate Actual 26.3 H 26.2 H POC Total CO2 27 27 Base Excess 2 2 O2 Saturation 99 100 H O2 % 100 ABG pCO2 37.4 39.2 ABG pO2 135 H 294 H Respiration Rate 14 O2 Delivery Device NRB Mask Vent Liter Flow 15.0 Vent Mode A-C Tidal Volume 500 POC PEEP 5 Blood Gas Notified Whom ICU MD ICU MD Blood Gas Notified Time 1210 1427 Sodium Potassium Chloride Carbon Dioxide Anion Gap BUN Creatinine Estim Creat Clear Calc Est GFR (MDRD) Af Amer Est GFR (MDRD) Non-Af BUN/Creatinine Ratio Glucose Lactic Acid Calcium Phosphorus Magnesium Troponin I B-Natriuretic Peptide Lipase TSH PTH Intact MRSA (PCR) Negative Blood Type Antibody Screen Crossmatch 09/10/17 09/10/17 09/10/17 14:45 14:45 14:45 WBC RBC Hgb Hct MCV MCH MCHC RDW RDW Differential Plt Count MPV Neut % (Auto) Absolute Neuts (auto) Absolute Lymphs (auto) Total Counted Neutrophils % (Manual) Band Neutrophils % Lymphocytes % (Manual) Eosinophils % (Manual) Metamyelocytes % Myelocytes % Diff Path Review Platelet Estimate RBC Morphology PT Pending INR Pending Specimen Type Sample Site pH Bicarbonate Actual POC Total CO2 Base Excess O2 Saturation O2 % ABG pCO2 ABG pO2 Respiration Rate O2 Delivery Device Liter Flow Vent Mode Tidal Volume POC PEEP Blood Gas Notified Whom Blood Gas Notified Time Sodium Pending Potassium Pending Chloride Pending Carbon Dioxide Pending Anion Gap Pending BUN Pending Creatinine Pending Estim Creat Clear Calc Est GFR (MDRD) Af Amer Pending Est GFR (MDRD) Non-Af Pending BUN/Creatinine Ratio Pending Glucose Pending Lactic Acid Calcium Pending Phosphorus Magnesium Troponin I Pending B-Natriuretic Peptide Pending Lipase TSH PTH Intact Cancelled MRSA (PCR) Blood Type Antibody Screen Crossmatch 09/10/17 14:45 WBC RBC Hgb Hct MCV MCH MCHC RDW RDW Differential Plt Count MPV Neut % (Auto) Absolute Neuts (auto) Absolute Lymphs (auto) Total Counted Neutrophils % (Manual) Band Neutrophils % Lymphocytes % (Manual) Eosinophils % (Manual) Metamyelocytes % Myelocytes % Diff Path Review Platelet Estimate RBC Morphology PT INR Specimen Type Sample Site pH Bicarbonate Actual POC Total CO2 Base Excess O2 Saturation O2 % ABG pCO2 ABG pO2 Respiration Rate O2 Delivery Device Liter Flow Vent Mode Tidal Volume POC PEEP Blood Gas Notified Whom Blood Gas Notified Time Sodium Potassium Chloride Carbon Dioxide Anion Gap BUN Creatinine Estim Creat Clear Calc Est GFR (MDRD) Af Amer Est GFR (MDRD) Non-Af BUN/Creatinine Ratio Glucose Lactic Acid Calcium Phosphorus Magnesium Troponin I B-Natriuretic Peptide Lipase TSH PTH Intact Pending MRSA (PCR) Blood Type Antibody Screen Crossmatch Assessment/Plan All Active Problems Near syncope (Acute) Hypotension (Acute) TRINIDAD (acute kidney injury) (Acute) Gastritis (Acute) I plan to perform an esophagogastroduodenoscopy on the patient in the ICU. I have spoken with the brother and the daughter who is actively being treated for malignancy at the [facility] main campus is coming back down. This is a tenuous situation. He will be given minimal sedation for the procedure and before doing biopsies I will obtain PT PTT on him. I have spoken with the brother and there is a significant mortality risk with his current hospitalization and my procedure. He understands and is given instructions to proceed.
[2017-09-10 15:08] LABS: International Normalized Ratio 3.4; Prothrombin Time (Protime)PT. 34.3 SECONDS (11.7-14.9)
[2017-09-10 15:10] LABS: Mucous, Urine 0 SEEN /hpf (<or=2+); Red Blood Cells-Urine 0 SEEN /hpf (0-5); Squamous Epithelial Cells - UA 0 SEEN /hpf (0-5)
[2017-09-10 15:15] LABS: Anion Gap 8 (5-15); BUN 89 mg/dL (7-18); BUN/Creat Ratio 34.4 RATIO (10-20); Calcium,Total 9.6 mg/dL (8.5-10.1); Chloride 104 mmol/L (98-107); Creatinine, Serum 2.59 mg/dL (0.70-1.30); EST Glomerular Filtration Rate 25 mL/min (>60); Est Glom Filt Rate - Afr Amer 31 mL/min (>60); Estimated Creatinine Clearance 20.19 ml/min; Glucose 85 mg/dL (74-106); Potassium 4.5 mmol/L (3.5-5.1); Sodium Level 140 mmol/L (136-145)
[2017-09-10] MEDS: fentaNYL 100 MCG/2 ML Ampul 50 MCG IV (15:15)
[2017-09-10 15:20] LABS: BNP,B-Type NATRIURETIC PEPTIDE 82.5 pg/mL (0-100)
[2017-09-10] MEDS: Chlorhexidine 15 ML PO (15:33)
[2017-09-10 15:37] LABS: Pathologist Review Reviewed
--- NOTE | 2017-09-10 15:43 | PCM.OPRPT ---
Problem List (1) GI bleed Status: Acute Qualifiers: GI bleed type/associated pathology: unspecified peptic ulcer Qualified Code(s): K27.4 - Chronic or unspecified peptic ulcer, site unspecified, with hemorrhage Report of Operation Date of Procedure: 09/10/17 - Triple-lumen catheter insertion Pre-Operative Diagnosis: GI bleed from prepyloric ulcer with clot visible Post-Operative Diagnosis: Same Surgery/Procedure Performed:: Esophagogastroduodenoscopy Type of Anesthesia:: MAC Description of Procedure: Patient was in ICU [address] Connolly increased his sedation and I removed his OG tube. The Olympus scope was inserted in the back of the oropharynx and directed down through the esophagus and into the stomach without difficulty. A significant amount of old blood was identified and I aspirated out as much as I could until I was having difficulty aspirating debris. Once I inflated the abdomen and got to the prepyloric area there was a large clot on an obvious ulcer. I saw the fringes of the ulcer but the clot was actively on the ulcer itself I do not see any bleeding around it and I irrigated this area with about a liter of normal saline. Photograph was obtained. I was unable to identify the pylorus nor was I able to go through the pylorus. Given the fact that the patient had an INR of 3.1 I do not think it was prudent to do anything of the situation. He was not actively bleeding. And the clot was fairly were adherent to this ulcer bed. I did not feel that injection was appropriate here and the fact that I was worried that I would start more bleeding. I removed the scope and placed an OG back down into the stomach. X-ray was obtained to confirm OG tube placement. Ditch Rider will start adding vitamin K and possibly FFP to correct PT at this time. If the patient becomes hypotensive again and a significant amount of blood is coming out of his OG tube he will need to be emergently rescoped for possible placement of a clip on the ulcerative bed. - Admit VTE Documentation VTE Present on Admission: No VTE Mechan Device Prophylaxis: SCD's VTE Pharm Prophylaxis ordered?: No Reason prophylaxis not ordered:: Treatment Not Indicated
--- NOTE | 2017-09-10 15:48 | OP.PCM_ITS ---
Problem List (1) GI bleed Status: Acute Qualifiers: GI bleed type/associated pathology: unspecified peptic ulcer Qualified Code (s): K27.4 - Chronic or unspecified peptic ulcer, site unspecified, with hemorrhage Report of Operation Date of Procedure: 09/10/17 - Triple-lumen catheter insertion Pre-Operative Diagnosis: GI bleed from prepyloric ulcer with clot visible Post-Operative Diagnosis: Same Surgery/Procedure Performed:: Esophagogastroduodenoscopy Type of Anesthesia:: MAC Description of Procedure: Patient was in ICU [address] Connolly increased his sedation and I removed his OG tube. The Olympus scope was inserted in the back of the oropharynx and directed down through the esophagus and into the stomach without difficulty. A significant amount of old blood was identified and I aspirated out as much as I could until I was having difficulty aspirating debris. Once I inflated the abdomen and got to the prepyloric area there was a large clot on an obvious ulcer. I saw the fringes of the ulcer but the clot was actively on the ulcer itself I do not see any bleeding around it and I irrigated this area with about a liter of normal saline. Photograph was obtained. I was unable to identify the pylorus nor was I able to go through the pylorus. Given the fact that the patient had an INR of 3.1 I do not think it was prudent to do anything of the situation. He was not actively bleeding. And the clot was fairly were adherent to this ulcer bed. I did not feel that injection was appropriate here and the fact that I was worried that I would start more bleeding. I removed the scope and placed an OG back down into the stomach. X- ray was obtained to confirm OG tube placement. Driveway Attendant will start adding vitamin K and possibly FFP to correct PT at this time. If the patient becomes hypotensive again and a significant amount of blood is coming out of his OG tube he will need to be emergently rescoped for possible placement of a clip on the ulcerative bed. - Admit VTE Documentation VTE Present on Admission: No VTE Mechan Device Prophylaxis: SCD's VTE Pharm Prophylaxis ordered?: No Reason prophylaxis not ordered:: Treatment Not Indicated
[2017-09-10 15:54] LABS: Glucose, Dipstick Normal (Normal); Ketone-Dipstick Negative (Negative); Leukocyte Esterase-Dipstick 25 /ul (Negative); Nitrite-Dipstick Negative (Negative); Occult Blood-Urine 250 /ul (Negative); Protein-Dipstick 30 mg/dl (Negative); Urine Bilirubin Dipstick Negative (Negative); Urine Urobilinogen 1 mg/dl (Normal)
[2017-09-10 15:55] LABS: Color, Urine Dk Yello (Yellow); Urine Clarity Cloudy (Clear)
[2017-09-10 15:58] LABS: White Blood Cells 0-5 SEEN /hpf (0-5)
[2017-09-10 15:59] LABS: Amorphous Sediment 3+; Bacteria 1+ /hpf (None Seen)
--- NOTE | 2017-09-10 16:15 | RAD_ITS ---
STUDY: X-RAY - ABDOMEN/PELVIS REASON FOR EXAM: Male, 81 years old. NG tube placement. TECHNIQUE: Single AP view of the abdomen / pelvis. COMPARISON: CT of the abdomen and pelvis, September 08, 2017. FINDINGS: Normal visualized lung bases. There is an NG tube looped in the gastric fundus with the catheter tip in the region of the antrum. Air feces and contrast is seen within a nondistended colon. There is no small bowel air. There is no demonstrated free abdominal air. The visualized liver, spleen and kidneys are grossly normal in size and morphology. Normal soft tissue structures. Normal visualized osseous structures. RAD/Abdomen Single View (Portable) IMPRESSION: 1. NG tube with its tip in the gastric antrum. 2. Feces and contrast within nondistended colon. There is an otherwise paucity of bowel gas. Electronically Signed: Scar Padron DO at 16:30 EDT Tel [phone], Service support ,
--- NOTE | 2017-09-10 16:18 | PN_ITS ---
Patient Problems: Active and Suspected Problems Near syncope (Acute) Hypotension (Acute) TRINIDAD (acute kidney injury) (Acute) Gastritis (Acute) GI bleed (Acute) Subjective: Pt was increasingly agitated last night and this morning. He pulled 2 ivs, would not stay in bed, was claiming that we kidnapped him. He did continue to have up and down BP in the AM and further abdominal pain. Per his daughter he has no memory or behavior issues and has never showed signs of dementia or sundowning before. He does drink 4-5 beers daily. He was started on haldol IM x1 and CIWA protocol. After receiving ativan IV he became unresponsive with hypotension, and hypoxia and was transferred to ICU. He had coffee ground emesis and underwent an EGD with demonstrated blood and a nonbleeding ulcer. He is currently intubated and sedated. - Physical Exam General: Alert, Oriented x3, Cooperative HEENT: Atraumatic, PERRLA, EOMI, Normocephalic Neck: Supple, No JVD, Negative Carotid Bruits Lungs: Clear to auscultation, Normal air movement Cardiovascular: Regular rate, No murmurs Abdomen: Bowel Sounds Present, Soft, Non Tender Extremities: No edema, Capillary Refill Less than 3 Seconds Skin: No rashes, No breakdown Musculoskeletal: No Tenderness to Palpation of Joints or Extremities Neurological: Cranial nerves II-XII grossly intact Psych/Mental Status: Normal Affect, Appropriate Vital Signs Temp Pulse Resp BP Pulse Ox 100.7 F H 82 36 H 102/83 H 100 09/10/17 14:15 09/10/17 14:42 09/10/17 14:42 09/10/17 14:15 09/10/17 14:15 Oxygen Flow Rate (L/min) 15 Oxygen Delivery Method Mechanical Ventilator Weight: 162 lb 0.636 oz Body Mass Index (BMI) 25.7 Intake and Output for Last 24 Hours 09/08/17 09/09/17 09/10/17 23:59 23:59 23:59 Intake Total 1594 / 1594 957 / 957 Output Total 300 / 300 2880 / 2880 Balance 1294 / 1294 -1923 / -1923 Microbiology Past 72 Hours 09/10/17 12:30 Gram Stain - Final Sputum, Induced/Lukens 09/10/17 13:15 Gastric Occult Blood - Final Gastric Fluid/Contents Occult Blood Positive Laboratory Tests Past 24 Hrs 09/09/17 09/09/17 09/09/17 17:28 17:28 20:04 WBC RBC Hgb 10.8 L Hct 31.7 L MCV MCH MCHC RDW RDW Differential Plt Count MPV Neut % (Auto) Absolute Neuts (auto) Absolute Lymphs (auto) Total Counted Neutrophils % (Manual) Band Neutrophils % Lymphocytes % (Manual) Eosinophils % (Manual) Metamyelocytes % Myelocytes % Diff Path Review Platelet Estimate RBC Morphology PT INR Specimen Type Sample Site pH Bicarbonate Actual POC Total CO2 Base Excess O2 Saturation O2 % ABG pCO2 ABG pO2 Respiration Rate O2 Delivery Device Liter Flow Vent Mode Tidal Volume POC PEEP Blood Gas Notified Whom Blood Gas Notified Time Sodium Potassium Chloride Carbon Dioxide Anion Gap BUN Creatinine Estim Creat Clear Calc Est GFR (MDRD) Af Amer Est GFR (MDRD) Non-Af BUN/Creatinine Ratio Glucose Lactic Acid 6.0 H* Calcium Phosphorus Magnesium Troponin I 0.135 H B-Natriuretic Peptide Lipase TSH PTH Intact Urine Color Urine Clarity Urine pH Ur Specific [place] Urine Protein Urine Glucose (UA) Urine Ketones Urine Occult Blood Urine Nitrite Urine Bilirubin Urine Urobilinogen Ur Leukocyte Esterase Urine RBC Urine WBC Ur Squamous Epith Cells Amorphous Sediment Urine Bacteria Urine Mucus MRSA (PCR) Blood Type Antibody Screen Crossmatch 09/09/17 09/09/17 09/09/17 20:04 20:04 20:04 WBC RBC Hgb Hct MCV MCH MCHC RDW RDW Differential Plt Count MPV Neut % (Auto) Absolute Neuts (auto) Absolute Lymphs (auto) Total Counted Neutrophils % (Manual) Band Neutrophils % Lymphocytes % (Manual) Eosinophils % (Manual) Metamyelocytes % Myelocytes % Diff Path Review Platelet Estimate RBC Morphology PT INR Specimen Type Sample Site pH Bicarbonate Actual POC Total CO2 Base Excess O2 Saturation O2 % ABG pCO2 ABG pO2 Respiration Rate O2 Delivery Device Liter Flow Vent Mode Tidal Volume POC PEEP Blood Gas Notified Whom Blood Gas Notified Time Sodium 140 Potassium 4.1 Chloride 98 Carbon Dioxide 32.0 Anion Gap 10 BUN 76 H Creatinine 2.33 H Estim Creat Clear Calc 22.44 Est GFR (MDRD) Af Amer 35 L Est GFR (MDRD) Non-Af 29 L BUN/Creatinine Ratio 32.6 H Glucose 99 Lactic Acid Calcium 11.8 H Phosphorus 4.3 Magnesium 2.8 H Troponin I B-Natriuretic Peptide Lipase TSH 2.09 PTH Intact Urine Color Urine Clarity Urine pH Ur Specific [place] Urine Protein Urine Glucose (UA) Urine Ketones Urine Occult Blood Urine Nitrite Urine Bilirubin Urine Urobilinogen Ur Leukocyte Esterase Urine RBC Urine WBC Ur Squamous Epith Cells Amorphous Sediment Urine Bacteria Urine Mucus MRSA (PCR) Blood Type O POSITIVE Antibody Screen NEGATIVE Crossmatch See Detail 09/09/17 09/09/17 09/09/17 20:04 20:04 22:54 WBC RBC Hgb Hct MCV MCH MCHC RDW RDW Differential Plt Count MPV Neut % (Auto) Absolute Neuts (auto) Absolute Lymphs (auto) Total Counted Neutrophils % (Manual) Band Neutrophils % Lymphocytes % (Manual) Eosinophils % (Manual) Metamyelocytes % Myelocytes % Diff Path Review Platelet Estimate RBC Morphology PT INR Specimen Type Sample Site pH Bicarbonate Actual POC Total CO2 Base Excess O2 Saturation O2 % ABG pCO2 ABG pO2 Respiration Rate O2 Delivery Device Liter Flow Vent Mode Tidal Volume POC PEEP Blood Gas Notified Whom Blood Gas Notified Time Sodium Potassium Chloride Carbon Dioxide Anion Gap BUN Creatinine Estim Creat Clear Calc Est GFR (MDRD) Af Amer Est GFR (MDRD) Non-Af BUN/Creatinine Ratio Glucose Lactic Acid Calcium Phosphorus Magnesium Troponin I 0.161 H 0.130 H B-Natriuretic Peptide Lipase 488 H TSH PTH Intact Urine Color Urine Clarity Urine pH Ur Specific [place] Urine Protein Urine Glucose (UA) Urine Ketones Urine Occult Blood Urine Nitrite Urine Bilirubin Urine Urobilinogen Ur Leukocyte Esterase Urine RBC Urine WBC Ur Squamous Epith Cells Amorphous Sediment Urine Bacteria Urine Mucus MRSA (PCR) Blood Type Antibody Screen Crossmatch 09/09/17 09/10/17 09/10/17 22:54 07:00 07:00 WBC 13.2 H RBC 3.02 L Hgb 9.5 L Hct 28.1 L MCV 93.0 MCH 31.5 MCHC 33.8 RDW 12.9 RDW Differential 43.8 Plt Count 147 L MPV 9.8 Neut % (Auto) Not Reportable Absolute Neuts (auto) 10.6 H Absolute Lymphs (auto) 1.80 Total Counted 100 Neutrophils % (Manual) 72 H Band Neutrophils % 8 H Lymphocytes % (Manual) 14 L Eosinophils % (Manual) 1 Metamyelocytes % 3 H Myelocytes % 2 H Diff Path Review May foll Platelet Estimate ADEQUATE RBC Morphology NORM C+C PT INR Specimen Type Sample Site pH Bicarbonate Actual POC Total CO2 Base Excess O2 Saturation O2 % ABG pCO2 ABG pO2 Respiration Rate O2 Delivery Device Liter Flow Vent Mode Tidal Volume POC PEEP Blood Gas Notified Whom Blood Gas Notified Time Sodium 138 Potassium 4.1 Chloride 101 Carbon Dioxide 27.0 Anion Gap 10 BUN 78 H Creatinine 2.38 H Estim Creat Clear Calc 21.97 Est GFR (MDRD) Af Amer 34 L Est GFR (MDRD) Non-Af 28 L BUN/Creatinine Ratio 32.8 H Glucose 89 Lactic Acid 1.7 Calcium 10.5 H Phosphorus Magnesium Troponin I B-Natriuretic Peptide Lipase TSH PTH Intact Urine Color Urine Clarity Urine pH Ur Specific [place] Urine Protein Urine Glucose (UA) Urine Ketones Urine Occult Blood Urine Nitrite Urine Bilirubin Urine Urobilinogen Ur Leukocyte Esterase Urine RBC Urine WBC Ur Squamous Epith Cells Amorphous Sediment Urine Bacteria Urine Mucus MRSA (PCR) Blood Type Antibody Screen Crossmatch 09/10/17 09/10/17 09/10/17 12:12 12:45 12:45 WBC RBC Hgb Hct MCV MCH MCHC RDW RDW Differential Plt Count MPV Neut % (Auto) Absolute Neuts (auto) Absolute Lymphs (auto) Total Counted Neutrophils % (Manual) Band Neutrophils % Lymphocytes % (Manual) Eosinophils % (Manual) Metamyelocytes % Myelocytes % Diff Path Review Platelet Estimate RBC Morphology PT INR Specimen Type ART Sample Site R Radial pH 7.46 H Bicarbonate Actual 26.3 H POC Total CO2 27 Base Excess 2 O2 Saturation 99 O2 % ABG pCO2 37.4 ABG pO2 135 H Respiration Rate O2 Delivery Device NRB Mask Liter Flow 15.0 Vent Mode Tidal Volume POC PEEP Blood Gas Notified Whom ICU Blood Gas Notified Time 1210 Sodium Potassium Chloride Carbon Dioxide Anion Gap BUN Creatinine Estim Creat Clear Calc Est GFR (MDRD) Af Amer Est GFR (MDRD) Non-Af BUN/Creatinine Ratio Glucose Lactic Acid Calcium Phosphorus Magnesium Troponin I B-Natriuretic Peptide Lipase TSH PTH Intact Urine Color Dk Yello Urine Clarity Cloudy Urine pH 5.0 Ur Specific [place] 1.020 Urine Protein 30 H Urine Glucose (UA) Normal Urine Ketones Negative Urine Occult Blood 250 H Urine Nitrite Negative Urine Bilirubin Negative Urine Urobilinogen 1 H Ur Leukocyte Esterase 25 H Urine RBC 0 SEEN Urine WBC 0-5 SEEN Ur Squamous Epith Cells 0 SEEN Amorphous Sediment 3+ Urine Bacteria 1+ Urine Mucus 0 SEEN MRSA (PCR) Negative Blood Type Antibody Screen Crossmatch 09/10/17 09/10/17 09/10/17 14:28 14:45 14:45 WBC RBC Hgb Hct MCV MCH MCHC RDW RDW Differential Plt Count MPV Neut % (Auto) Absolute Neuts (auto) Absolute Lymphs (auto) Total Counted Neutrophils % (Manual) Band Neutrophils % Lymphocytes % (Manual) Eosinophils % (Manual) Metamyelocytes % Myelocytes % Diff Path Review Platelet Estimate RBC Morphology PT INR Specimen Type ART Sample Site R Radial pH 7.43 Bicarbonate Actual 26.2 H POC Total CO2 27 Base Excess 2 O2 Saturation 100 H O2 % 100 ABG pCO2 39.2 ABG pO2 294 H Respiration Rate 14 O2 Delivery Device Vent Liter Flow Vent Mode A-C Tidal Volume 500 POC PEEP 5 Blood Gas Notified Whom ICU MD Blood Gas Notified Time 1427 Sodium 140 Potassium 4.5 Chloride 104 Carbon Dioxide 28.0 Anion Gap 8 BUN 89 H Creatinine 2.59 H Estim Creat Clear Calc 20.19 Est GFR (MDRD) Af Amer 31 L Est GFR (MDRD) Non-Af 25 L BUN/Creatinine Ratio 34.4 H Glucose 85 Lactic Acid Calcium 9.6 Phosphorus Magnesium Troponin I 0.076 H B-Natriuretic Peptide 82.5 Lipase TSH PTH Intact Cancelled Urine Color Urine Clarity Urine pH Ur Specific [place] Urine Protein Urine Glucose (UA) Urine Ketones Urine Occult Blood Urine Nitrite Urine Bilirubin Urine Urobilinogen Ur Leukocyte Esterase Urine RBC Urine WBC Ur Squamous Epith Cells Amorphous Sediment Urine Bacteria Urine Mucus MRSA (PCR) Blood Type Antibody Screen Crossmatch 09/10/17 09/10/17 14:45 14:45 WBC RBC Hgb Hct MCV MCH MCHC RDW RDW Differential Plt Count MPV Neut % (Auto) Absolute Neuts (auto) Absolute Lymphs (auto) Total Counted Neutrophils % (Manual) Band Neutrophils % Lymphocytes % (Manual) Eosinophils % (Manual) Metamyelocytes % Myelocytes % Diff Path Review Platelet Estimate RBC Morphology PT 34.3 H INR 3.4 Specimen Type Sample Site pH Bicarbonate Actual POC Total CO2 Base Excess O2 Saturation O2 % ABG pCO2 ABG pO2 Respiration Rate O2 Delivery Device Liter Flow Vent Mode Tidal Volume POC PEEP Blood Gas Notified Whom Blood Gas Notified Time Sodium Potassium Chloride Carbon Dioxide Anion Gap BUN Creatinine Estim Creat Clear Calc Est GFR (MDRD) Af Amer Est GFR (MDRD) Non-Af BUN/Creatinine Ratio Glucose Lactic Acid Calcium Phosphorus Magnesium Troponin I B-Natriuretic Peptide Lipase TSH PTH Intact Pending Urine Color Urine Clarity Urine pH Ur Specific [place] Urine Protein Urine Glucose (UA) Urine Ketones Urine Occult Blood Urine Nitrite Urine Bilirubin Urine Urobilinogen Ur Leukocyte Esterase Urine RBC Urine WBC Ur Squamous Epith Cells Amorphous Sediment Urine Bacteria Urine Mucus MRSA (PCR) Blood Type Antibody Screen Crossmatch Medical Necessity - Tobacco Use Smoking Status: Current every day smoker Tobacco Use: Pipe Assessment/Plan All Active Problems Near syncope (Acute) Hypotension (Acute) TRINIDAD (acute kidney injury) (Acute) Gastritis (Acute) GI bleed (Acute) 1. Near syncopal episode 2/2 Hypotension suspect 2/2 dehydration from decreased PO intake over 2 weeks - hydrate with aggressive fluids. High LA on presentation. Now in ICU on pressors. GI and Critical care onboard. CT abdomen with changes concerning for malignancy -troponin indeterminate -lipase elevated -bnp neg -ammonia pending -cortisol pending, pth pending, TSH normal. -cxr with scarring, atelectasis, ET tube in place. -platelets down to 147. -INR 3.4. -continue thiamine 2. Acute blood loss anemia 2/2 bleeding ulcer - protonix drip, s/p EGD. Per surgery no active bleeding. DC tobacco and alcohol. 3. Acute alcohol withdrawal - now sedated and intubated in ICU. 4. TRINIDAD - 2/2 decreased PO intake - hydrate. NILESH held DVT ppx: SCDs DC planning: PTOT This patient was seen by José Rosario PA-C under the supervision of Doctor Ricardo.
[2017-09-10] MEDS: Phenylephrine 10 MG/ML Vial 40 MG IV (16:36)
[2017-09-10] MEDS: Propofol 200 MG/20 ML Vial 50 MG IV BOLUS (16:36)
--- NOTE | 2017-09-10 18:31 | PCM.DC.SUM ---
Discharge Date and Diagnosis - Problem List Patient Problems: Active and Suspected Problems Near syncope (Acute) Hypotension (Acute) TRINIDAD (acute kidney injury) (Acute) Gastritis (Acute) GI bleed (Acute) Date of Admission: 09/09/17 Date of Discharge: 09/10/17 - Primary Discharge Diagnosis Active and Suspected Problems Near syncope 2/2 hypovolemia Acute blood loss anemia 2/2 upper GI bleed 2/2 large ulcer, suspected underlying metastatic disease TRINIDAD 2/2 dehydration, hypotension Acute hypoxic respiratory failure, s/p intubation Acute hypovolemic shock Suspected aspiration pna Alcoholism with acute withdrawal with delirium tremens Nicotine abuse Hx HTN Hospital Course and Treatment Imaging Results: RAD/Chest PA and Lateral IMPRESSION: COPD. Atelectasis versus infiltrate in the left lower lobe. CT/Abdomen/Pel W ORAL Cont Only IMPRESSION: 1. Inflammatory changes involving the distal stomach and proximal duodenum with marked mesenteric lymphadenopathy there is marked associated adenopathy within the small bowel mesentery and retrocrural space and upper retroperitoneum. Question malignancy or inflammatory change. The patient will benefit from endoscopy.. 2. Marked distention of the stomach secondary to distal inflammatory change. 3. Question inflammatory changes of the left kidney without stone or obstruction. 4. Sigmoid diverticulosis without acute inflammatory change. RAD/Chest 1 View (Portable) IMPRESSION: Mild degree of increased markings at the lung bases worse on the left side suggestive of bilateral atelectasis superimposed on scarring. The tip of the endotracheal tube is at 2.7 cm proximal to the ovidio. RAD/Chest 1 View (Portable) IMPRESSION: The tip of the right internal jugular venous catheter is in the proximal portion of the superior vena cava. Improved aeration of both lungs. RAD/Abdomen Single View (Portable) IMPRESSION: 1. NG tube with its tip in the gastric antrum. 2. Feces and contrast within nondistended colon. There is an otherwise paucity of bowel gas. Consults: Gabe - gen surgery Brown - ICU/pulmonology Operations: None Procedures: EGD, Intubation Summary of Care Provided: Physical exam on day of discharge : see daily progress note. Hospital course: The patient is a 81 year old M with a hx of hypertension, nicotine abuse, alcohol abuse who presented to the ER after having a syncopal episode in the shower at home. His daughter found him poorly responsive. EMS was called and found him the same with hypotension. He was brought to the ED and found hypotensive, high lactate at 19, high anion gap, leukocytosis, only mildly anemia at Hgb of 11.4, and TRINIDAD with Cr. of 2.81 He responded well to IV fluid bolus. He did well the first night with stable pressures. He had severe abdominal pain and had a CT of the abdomen showing inflammatory changes of the stomach and distal stomach and proximal duodenum with marked mesenteric lymphadenopathy and marked associated adenopathy of the small bowel mesentery and retrocrural space and upper retroperitoneum questionable for malignancy.. Overnight he became confused, hallucinating stating we kidnapped him, pulled out 2 IVs, not following commands. He was initiated on the CIWA protocol. Later in the morning he became unresponsive, hypoxic, and also hypotensive again. Rapid response was called and the patient was intubated for airway protection. During his intubation a OG tube was placed and 3 L of coffee-ground fluid came out. The patient was placed on pressors, Protonix drip, Zosyn for possible aspiration, fentanyl drip. General surgery was called and an emergent upper endoscopy was performed. This revealed a large amount of blood in the stomach, after lavage there was a large ulcer with a large clot over top of it that general surgery did not feel was amenable to injection or removal of the clot at this time to go to a high likeliness of bleeding. No intervention was performed. The patient was deemed to be at very high risk for possible further bleeding, and since no GI support is available here it was felt that the patient would be appropriate to transfer to a facility with GI support who could perform intervention if the patient starts bleeding acutely. At this time a repeat hemoglobin shows that it is dropped mildly to 9.5. Per request of the daughter he was transferred to [facility] ICU under the care of Dr. Low. At this time he is stable but guarded. This patient was seen by José Rosario PA-C under the supervision of Doctor Ricardo. [] Discharge Diet: - - As directed by receiving facility Discharge Activity: - - As directed by receiving facility Home Medications: Medications to take at Discharge Aspirin [Aspirin, Baby] 81 mg PO DAILY@0800 07/16/18 Lisinopril [Lisinopril] 20 mg PO DAILY 09/09/17 Primary Care Physician: Jesus Alberto Kaur MD [Primary Care Provider] - Please follow up with your Primary Care Physician in: As directed Disposition: Acute care Hospital Minutes spent on discharge:: 45 Patient Condition:: Guarded Medical Necessity - Tobacco Use Smoking Status: Current every day smoker Tobacco Use: Pipe Meaningful Use Info Meaningful Use Diagnoses (Choose all that apply): None applicable
[2017-09-10] MEDS: Lactated Ringers 1,000 ML 150 ML IV (18:38)
[2017-09-10] MEDS: Vancomycin IV 1,000 MG/200 ML BAG 200 MG IV (18:38)
[2017-09-10] MEDS: Acetaminophen 650 MG Suppository RECTAL (18:40)
--- NOTE | 2017-09-10 18:43 | DS.PCM_ITS ---
Discharge Date and Diagnosis - Problem List Patient Problems: Active and Suspected Problems Near syncope (Acute) Hypotension (Acute) TRINIDAD (acute kidney injury) (Acute) Gastritis (Acute) GI bleed (Acute) Date of Admission: 09/09/17 Date of Discharge: 09/10/17 - Primary Discharge Diagnosis Active and Suspected Problems Near syncope 2/2 hypovolemia Acute blood loss anemia 2/2 upper GI bleed 2/2 large ulcer, suspected underlying metastatic disease TRINIDAD 2/2 dehydration, hypotension Acute hypoxic respiratory failure, s/p intubation Acute hypovolemic shock Suspected aspiration pna Alcoholism with acute withdrawal with delirium tremens Nicotine abuse Hx HTN Hospital Course and Treatment Imaging Results: RAD/Chest PA and Lateral IMPRESSION: COPD. Atelectasis versus infiltrate in the left lower lobe. CT/Abdomen/Pel W ORAL Cont Only IMPRESSION: 1. Inflammatory changes involving the distal stomach and proximal duodenum with marked mesenteric lymphadenopathy there is marked associated adenopathy within the small bowel mesentery and retrocrural space and upper retroperitoneum. Question malignancy or inflammatory change. The patient will benefit from endoscopy.. 2. Marked distention of the stomach secondary to distal inflammatory change. 3. Question inflammatory changes of the left kidney without stone or obstruction. 4. Sigmoid diverticulosis without acute inflammatory change. RAD/Chest 1 View (Portable) IMPRESSION: Mild degree of increased markings at the lung bases worse on the left side suggestive of bilateral atelectasis superimposed on scarring. The tip of the endotracheal tube is at 2.7 cm proximal to the ovidio. RAD/Chest 1 View (Portable) IMPRESSION: The tip of the right internal jugular venous catheter is in the proximal portion of the superior vena cava. Improved aeration of both lungs. RAD/Abdomen Single View (Portable) IMPRESSION: 1. NG tube with its tip in the gastric antrum. 2. Feces and contrast within nondistended colon. There is an otherwise paucity of bowel gas. Consults: Gabe - gen surgery Brown - ICU/pulmonology Operations: None Procedures: EGD, Intubation Summary of Care Provided: Physical exam on day of discharge : see daily progress note. Hospital course: The patient is a 81 year old M with a hx of hypertension, nicotine abuse, alcohol abuse who presented to the ER after having a syncopal episode in the shower at home. His daughter found him poorly responsive. EMS was called and found him the same with hypotension. He was brought to the ED and found hypotensive, high lactate at 19, high anion gap, leukocytosis, only mildly anemia at Hgb of 11.4, and TRINIDAD with Cr. of 2.81 He responded well to IV fluid bolus. He did well the first night with stable pressures. He had severe abdominal pain and had a CT of the abdomen showing inflammatory changes of the stomach and distal stomach and proximal duodenum with marked mesenteric lymphadenopathy and marked associated adenopathy of the small bowel mesentery and retrocrural space and upper retroperitoneum questionable for malignancy.. Overnight he became confused, hallucinating stating we kidnapped him, pulled out 2 IVs, not following commands. He was initiated on the CIWA protocol. Later in the morning he became unresponsive, hypoxic, and also hypotensive again. Rapid response was called and the patient was intubated for airway protection. During his intubation a OG tube was placed and 3 L of coffee- ground fluid came out. The patient was placed on pressors, Protonix drip, Zosyn for possible aspiration, fentanyl drip. General surgery was called and an emergent upper endoscopy was performed. This revealed a large amount of blood in the stomach, after lavage there was a large ulcer with a large clot over top of it that general surgery did not feel was amenable to injection or removal of the clot at this time to go to a high likeliness of bleeding. No intervention was performed. The patient was deemed to be at very high risk for possible further bleeding, and since no GI support is available here it was felt that the patient would be appropriate to transfer to a facility with GI support who could perform intervention if the patient starts bleeding acutely. At this time a repeat hemoglobin shows that it is dropped mildly to 9.5. Per request of the daughter he was transferred to [facility] ICU under the care of Dr. Low. At this time he is stable but guarded. This patient was seen by José Rosario PA-C under the supervision of Doctor Ricardo. [] Discharge Diet: - - As directed by receiving facility Discharge Activity: - - As directed by receiving facility Home Medications: Medications to take at Discharge Aspirin [Aspirin, Baby] 81 mg PO DAILY@0800 07/16/18 Lisinopril [Lisinopril] 20 mg PO DAILY 09/09/17 Primary Care Physician: Jesus Alberto Kaur MD [Primary Care Provider] - Please follow up with your Primary Care Physician in: As directed Disposition: Acute care Hospital Minutes spent on discharge:: 45 Patient Condition:: Guarded Medical Necessity - Tobacco Use Smoking Status: Current every day smoker Tobacco Use: Pipe Meaningful Use Info Meaningful Use Diagnoses (Choose all that apply): None applicable
--- NOTE | 2017-09-10 18:59 | PCM.RX.CS ---
Consult Pharmacy has been consulted to manage selected antiobiotic: Vancomycin Type of Consult: New start Suspected Infection: Pneumonia Labs: Sodium 140 mmol/L (136-145) 09/10/17 14:45 Potassium 4.5 mmol/L (3.5-5.1) 09/10/17 14:45 Chloride 104 mmol/L (98-107) 09/10/17 14:45 Carbon Dioxide 28.0 mmol/L (21.0-32.0) 09/10/17 14:45 Anion Gap 8 (5-15) 09/10/17 14:45 BUN 89 mg/dL (7-18) H 09/10/17 14:45 Creatinine 2.59 mg/dL (0.70-1.30) H 09/10/17 14:45 Est GFR (MDRD) Af Amer 31 mL/min (>60) L 09/10/17 14:45 Est GFR (MDRD) Non-Af 25 mL/min (>60) L 09/10/17 14:45 BUN/Creatinine Ratio 34.4 RATIO (10-20) H 09/10/17 14:45 Glucose 85 mg/dL (74-106) 09/10/17 14:45 Microbiology: Microbiology 09/10/17 12:30 Sputum, Induced/Lukens Gram Stain - Final 09/10/17 13:15 Gastric Fluid/Contents Gastric Occult Blood - Final Occult Blood Positive Weight used for dosin.5 kg Estimated Creatinine Clearance: 20 ml/min Goal Trough: 15-20 mcg/mL Pharmacy Plan for Drug DosinMG IV X1 load, then 500mg IV q24h. Pharmacy Service will continue to monitor and adjust dosing as required. Follow-Up Labs: Trough Vancomycin Labs to be done on [date and time ordered]: Trough to be obtained before the 3rd total dose on 09/12/17 at 18:30
[2017-09-10 20:03] LABS: Hematocrit 23.9 % (40-54); Hemoglobin 8.2 g/dl (13.0-16.5); Mean Corp Hgb Conc 34.3 g/gl (32-36); Mean Corpuscular Hgb 32.3 pg (27.0-32.0); Mean Corpuscular Volume 94.1 fL (80-94); Mean Platelet Vol. 9.6 fl (6.2-12.0); Platelet Count 139 K/mm3 (150-450); RBC Distribution Width CV 12.5 % (11.6-14.6); RBC Distribution Width SD 40.9 fl (35.1-43.9); Red Blood Count 2.54 M/mm3 (4.6-6.2); White Blood Count 8.4 K/mm3 (4.4-11.0)
[2017-09-10 20:11] LABS: Differential Indicated SCAN CRITERIA MET; POSITIVE COUNT NO; POSITIVE DIFFERENTIAL NO; POSITIVE MORPHOLOGY YES
[2017-09-10 21:05] LABS: Anisocytosis RARE; Macrocytosis RARE; Platelet Estimate SLT DEC (ADEQ)
--- NOTE | 2017-09-10 21:18 | NURSING ---
Dentures upper and lowers and pt's watch given to daughter Jessica to take home.
[2017-09-10 22:22] LABS: Scan Smear per Review Criteria MANUAL DIFF
[2017-09-10 22:25] LABS: Absolute Neutrophil Count 5.8 X10^3/uL (2.0-7.7)
[2017-09-10 22:26] LABS: Total Cells Counted 100 (MANUAL DIFF)
[2017-09-10 22:27] LABS: Lymphocyte 24 % (19-41); Metamyelocyte 3 % (0-1); Myelocyte 2 (0-0); Neutrophil-Band 14 % (0-5); Neutrophil-Segmented 55 % (47-70)
[2017-09-10 22:29] LABS: Monocyte 2 % (0-10)
[2017-09-11 09:08] LABS: PTHIN 26.8 pg/mL (18.4-80.1)
[2017-09-11 12:50] LABS: Bedside Glucose 80 mg/dL (70-110)
[2017-09-11 13:25] LABS: Pathologist Review Reviewed
[2017-09-11 13:26] LABS: Pathologist Review Reviewed
== END 2017-09-10 21:05 | disposition short-term general hospital (02) | DRG 377 ==
LOC: ED 12:46 → PCU 13:52 → ICU 09-10 12:22
PROVIDERS: Internal Medicine Critical Care Medicine; Physician Assistant; Surgery; Admitting Provider Internal Medicine; Emergency Provider Emergency Medicine; Family Provider Internal Medicine; PCP Internal Medicine; Visit Provider Internal Medicine
PROC: 0DJ08ZZ Inspection of Upper Intestinal Tract, Via Natural or Artificial Opening Endoscopic (ICD-10-PCS; CPT 43235; principal; 2017-09-10 12:55)
DX: K25.4 Chronic or unspecified gastric ulcer with hemorrhage (principal); J96.01 Acute respiratory failure with hypoxia; N17.0 Acute kidney failure with tubular necrosis; J69.0 Pneumonitis due to inhalation of food and vomit; R57.9 Shock, unspecified; D62 Acute posthemorrhagic anemia; F10.231 Alcohol dependence with withdrawal delirium; F05 Delirium due to known physiological condition; I24.8 Other forms of acute ischemic heart disease; E86.0 Dehydration; F17.200 Nicotine dependence, unspecified, uncomplicated; I10 Essential (primary) hypertension; I95.1 Orthostatic hypotension
CPT/HCPCS: 31500; 31720; 36415; 36600; 71045; 71046; 74018; 74176; 80048; 80076; 81001; 82271; 82803; 82962; 83605; 83690; 83735; 83880; 83970; 84100; 84443; 84484; 85014; 85018; 85025; 85610; 86850; 86900; 86920; 86922; 87040; 87070; 87086; 87205; 87641; 93005; 94002; 94640; 97802; 99251; 99285; J7030; J7040; J7120; A4216; C1751; G0463; J3490